=== PATIENT | male | born 1950 | race Caucasian/White ===

== ENCOUNTER 2025-04-09 21:47 | Inpatient (IN) | payer MEDICARE, SELFPAY ==
[2025-04-09 19:34] VITALS: BP 145/56; BMI 33.9
[2025-04-09 20:00] VITALS: BP 116/41
[2025-04-09 20:18] LABS: Hematocrit 19.2 % (39.0-52.0); Hemoglobin 6.3 g/dL (13.0-18.0); Mean Corp Hgb Conc. 32.8 g/dL (33.0-37.0); Mean Corpuscular Volume 90.1 fL (80.0-94.0); Nucleated Red Blood Cells % 0 % (-); Platelet Count 217 10^3/uL (130-400); Red Cell Dist. Width 15.7 % (11.5-14.5)
[2025-04-09 20:20] LABS: ALT (SGPT) 24 U/L (0-50); AST (SGOT) 20 U/L (17-59); Albumin 3.0 g/dl (3.5-5.0); Alkaline Phosphatase 194 U/L (38-126); Blood Urea Nitrogen 8 mg/dl (9-20); Calcium 7.9 mg/dl (8.4-10.2); Carbon Dioxide 26 mmol/L (22-30); Chloride 101 mmol/L (98-107); Estimated Creatinine Clearance 41 ml/min; Glucose 191 mg/dl (70-99); Potassium 3.9 mmol/L (3.5-5.1); Sodium 134 mmol/L (135-145); Total Protein 6.0 g/dl (6.3-8.2); eGFR 48.25
--- NOTE | 2025-04-09 20:48 | ED.GENMED ---
History of Present Illness
General
Chief Complaint: Abnormal Lab Value
Source: patient and ambulance crew
Exam Limitations: none
Time Seen by Provider: 04/09/25 20:25
History of Present Illness
History of Present Illness:
74-year-old male presents to the emergency department due to anemia. He was at dialysis, and had a low hemoglobin and was sent to the emergency department. He denies any blood in the stool. History of multiple myeloma.
Past History
Past History
ED Past Medical History: Arrthythmia (atrial flutter, atrial fibrillation), HTN, Hypercholesterolemia and Renal failure
ED Past Surgical History: Cardiac (Pacemaker)
Social History
Tobacco: Non-smoker
Alcohol: None
Drug: None
Living: halfway
Review of Systems
Review of Systems
Allergies reviewed?: Yes
All Other Systems: Not applicable
Constitutional: Reports no symptoms
EENT: Reports no symptoms
Respiratory: Reports no symptoms
Cardiac: Reports no symptoms
ABD/GI: Reports no symptoms
: Reports no symptoms
Musculoskeletal: Reports no symptoms
Skin: Reports no symptoms
Neurological: Reports no symptoms
Endocrine: Reports no symptoms
Hematologic/Lymphatic: Reports no symptoms
Psychiatric: Reports no symptoms
Phy Exam
Physical Exam
Physical Exam:
Physical Exam
General: Chronic ill appearance
Neck: supple. no meningeal signs. normal posterior pharynx
Heart: s1/s2 regular rate and rhythm, no murmur. equal radial
pulses.
HEENT: Pupils equal round reactive to light, EOMI
Lungs: no acute respiratory distress. clear bilaterally
Abdomen: normal bowel sounds. not tender. no CVAT
Neuro: alert and oriented. no focal neurological deficits cranial nerves II through XII intact
Skin: no rash
Psychiatric: well kept. interactive and cooperative
Extremities: no edema. no calf tenderness. negative homans. good distal pulses, bandage with healing wound on right foot
Course
Orders/Labs/Results
Orders:
Orders
04/09/25 19:58
Type And Crossmatch [Type+Screen] Urgent
Complete Blood Count/With Diff Urgent
Comprehensive Metabolic Panel Urgent
04/09/25 20:28
ABO2 Urgent
BBK Wristband Number:
Associate notified that ABO2 has been ordered: [id number]
Date: 04/09/25
Time: 20:19
[place] Layer ID: [id number]
04/09/25 20:47
* Blood Bank Products Urgent
's Orders: 1 unit prbcs
Blood Bank Products: *Packed RBC Leuko(PRBC's)
Quantity: 1
Transfuse Today: Yes
Reason: Anemia
Abnormal Lab Results
04/09/25
19:58
RBC 2.13 L 10^6/uL
(4.70-6.10)
Hgb 6.3 L* g/dL
(13.0-18.0)
Hct 19.2 L* %
(39.0-52.0)
MCHC 32.8 L g/dL
(33.0-37.0)
RDW 15.7 H %
(11.5-14.5)
Abs Immat Gran (auto) 0.2 H 10^3/uL
(0-0.05)
Absolute Neuts (auto) 6.8 H 10^3/uL
(1.4-6.5)
Absolute Lymphs (auto) 0.4 L 10^3/uL
(1.2-3.4)
Immature Gran % 3.0 H %
(0-0.5)
Neutrophils % 84.3 H %
(42.2-75.2)
Lymphocytes % 5.4 L %
(20.5-51.1)
Sodium 134 L mmol/L
(135-145)
BUN 8 L mg/dl
(9-20)
Creatinine 1.5 H mg/dL
(0.7-1.3)
Glucose 191 H mg/dl
(70-99)
Calcium 7.9 L mg/dl
(8.4-10.2)
Alkaline Phosphatase 194 H U/L
(38-126)
Total Protein 6.0 L g/dl
(6.3-8.2)
Albumin 3.0 L g/dl
(3.5-5.0)
04/09/25 19:58
04/09/25 19:58
Vital Signs
Initial and Last Documented VS:
Initial Vital Signs
Temp Pulse Resp BP Pulse Ox
98.1 F 60 20 145/56 98
04/09/25 19:34 04/09/25 19:34 04/09/25 19:34 04/09/25 19:34 04/09/25 19:34
Last Documented Vital Signs
Temp Pulse Resp BP Pulse Ox
98.1 F 60 19 116/41 98
04/09/25 19:34 04/09/25 20:00 04/09/25 20:00 04/09/25 20:00 04/09/25 20:08
MDM/Problems Addressed
Differential Diagnosis Includes:
GI bleed, anemia chronic disease
MDM/Problems Addressed:
74-year-old male with anemia, requiring transfusion. 1 unit packed red blood cells ordered. Will admit to hospitalist.
Chronic conditions affecting care: Arrhythmia and Kidney disease
Acute Exacerbation and/or Progression of Chronic Illness: Arrhythmia and Kidney disease
*Pulse Oximetry
SaO2: 98
Oxygen Mode of Delivery: Room air
Patient hypoxic: no
*Critical Care Note
Total Time (30-74mins, 75-104mins- exclusive of procedures): 32
comment:
Critical care statement: A total of 32 minutes of critical care time was provided for this patient. This includes management of unstable vital signs, evaluation of the patient at bedside, reviewing the patient's pertinent medical records, discussion
with consultants, review of old EKGs and review of pertinent medical records. This time with separate from time utilized to perform the aforementioned documented procedures
Data Reviewed
Further Testing Considered But Not Given:
ct a/p not indicated
Patient Management
Social determinants of health affecting care: Living situation and Strong social support
Discussion with other providers: Hospitalist
Escalation/DeEscalation of care consider admission/obs:
admit indicated
ED Attending Note
-
Portions of this chart may have been created with voice recognition software.� Occasional wrong word or��sound alike� substitutions may have occurred due to the inherent limitations of voice recognition software.
Discharge Plan
Departure
Patient Disposition: Admit
Date of Disposition: 04/09/25
Time of Disposition: 20:56
Admit to: Med/Surg
Presentation/result/management discussed w/ accepting MD/DO: Hospitalist
Patient with high blood pressure during this ER visit?: No
Condition: Fair
Discharge Problem:
Anemia
Referrals:
Quintin Cavazos, DO [Family Provider, Internal Medicine]
Interventions
Interventions:
*Risk Screen - Suicide Last Done: 04/09/25 19:34
*General Assessment Last Done: 04/09/25 19:34
*Neglect/Abuse Screening Last Done: 04/09/25 19:34
*ED- Fall Risk Assessment Last Done: 04/09/25 19:34
*ED COVID-19 Vaccine History Last Done: 04/09/25 19:34
Discharge Date and Time
Print Language: POLISH
--- NOTE | 2025-04-09 21:19 | W.PN.UPDATE ---
Update Note
Progress Note Update
I have independently examined the patient and agree with assessment and plan written on the same date. In addition:
74yo M with ESRD (started in January 2025 in [facility] where patient was for R joe DM wound SX) on HD sent from HD with anemia. Remote Hx of GIB in paperwork, that patient is not clear abliut
-PPI BID IV
-Anemia w/u, check FOBT, Nephro for Epo, s/p 1 unit PRBC in ED. Hematology opinion, follow CBC
-Elevated alk.phos w/u RUQ pain - follow LFT
We have spent at least 77min admitting the patient
--- NOTE | 2025-04-09 21:20 | HPS.HSE ---
Family Physician
-
Family Physician: Quintin Cavazos, DO
Chief Complaint
-
Anemia from dialysis
History of Present Illness
74-year-old male from [facility] where he has been since January 2025, was sent to ER due to low hemoglobin while at dialysis today of 6.3. He denies any black or bloody stools. The patient denies headache, blurred vision, dizziness,
chest pain, palpitations, cough, shortness of breath, abdominal pain, nausea, vomiting, diarrhea, urinary symptoms. He also has history of multiple myeloma in remission past 2 years, A-flutter, A-fib, pacemaker, HTN, HLD, ESRD on dialysis February 27
2024 post Charcot foot surgery February 04, 2025, DM 2/diet-controlled, GERD
Medical History
Past Medical History
Past Medical History: Reports Other
Additional Past Medical History:
multiple myeloma in remission past 2 years
A-flutter, A-fib,
pacemaker
HTN
HLD
ESRD on dialysis February 27, 2025 post Charcot foot surgery January 2025
post Charcot right foot surgery February 04, 2025
Past Surgical History: Reports Other
Additional Past Surgical History:
Charcot right foot surgery February 04, 2025
Permanent pacemaker
Social History
Tobacco: Non-smoker
Alcohol: Occasional
Drug: None
Personal: Single
Living: Alone
Employment: Retired
Family History
Family History: Other (Mother breast cancer age 32, brother colon cancer age 62 Father [place] age 70 Sister living arthritis knees)
Allergies / Home Medications
Allergies reflects when Allergies were last updated in [employer].
Home Medications with original date entered in [employer]
Allergy/Medication List:
Allergies
Allergy/AdvReac Type Severity Reaction Status Date / Time
cefadroxil Allergy Unknown Verified 04/09/25 20:03
Home Medications
Lactobacillus 1 cap PO DAILY 04/09/25
acetaminophen 325 mg tablet (Tylenol) 650 mg PO Q6HPRN PRN mild pain/temp>100.4F 04/09/25
amiodarone 200 mg tablet 200 mg PO BID 04/09/25
atorvastatin 20 mg tablet 20 mg PO QPM 04/09/25
bisacodyl 10 mg rectal suppository 10 mg IN DAILY PRN if sorbitol ineffective 04/09/25
calcium carbonate 1 tab PO BID 04/09/25
carvedilol 12.5 mg tablet 12.5 mg PO BID 04/09/25
dextromethorphan-guaifenesin 10 mg-100 mg/5 mL oral syrup 5 ml PO Q4HPRN PRN cough 04/09/25
digoxin 125 mcg (0.125 mg) tablet 125 mcg PO TUTHSA@1700 04/09/25
epoetin elie-epbx 10,000 unit/mL injection solution (Retacrit) 10,000 unit SC MOWEFR 04/09/25
febuxostat 40 mg tablet 40 mg PO DAILY 04/09/25
ferrous sulfate 325 mg (65 mg iron) tablet 325 mg PO BID 04/09/25
loperamide 2 mg capsule 2 mg PO Q6HPRN PRN diarrhea 04/09/25
multivitamin 1 tab PO DAILY 04/09/25
pantoprazole 40 mg tablet,delayed release 40 mg PO DAILY 04/09/25
potassium chloride 40 meq PO DAILY 04/09/25
sevelamer HCl 800 mg tablet 1,600 mg PO MEALS 04/09/25
sorbitol 70 % solution 30 ml PO DAILYPRN PRN constipation 04/09/25
vit C 250 mg-vit E 90 mg-zinc 40 mg-copper 1 nm-[id number] capsule (PreserVision AREDS-2) 1 cap PO BID 04/09/25
Review of Systems
-
History Source: Patient
A 12 point ROS was completed and negative except as noted: Yes
Constitutional: Denies Fever or Fatigue
EENT: Denies Sore Throat, Mouth Pain or Runny Nose
Respiratory: Denies Cough or Trouble Breathing
Cardiac: Denies Chest Pain, Palpitations or Syncope
Abdomen/GI: Denies Abdominal Pain, Nausea, Vomiting, Diarrhea, Constipated or Bloody Stools
: Denies Dysuria, Frequency, Flank Pain, Incontinence or Difficulty Voiding
Musculoskeletal: Reports Edema (Chronic trace bilateral lower legs with chronic pigment changes of PVD, right foot status post Charcot foot surgery with plantar wound); Denies Joint Pain
Skin: Denies Itching or Rash
Neurological: Denies Dizzy, Headache or Weakness
Endocrine: Reports No Symptoms
Hematologic/Lymphatic: Reports No Symptoms
Psych: Reports Calm
Physical Exam
Vital Signs
Vital Signs
Temp Pulse Resp BP Pulse Ox
98.1 F 60 19 116/41 98
04/09/25 19:34 04/09/25 20:00 04/09/25 20:00 04/09/25 20:00 04/09/25 20:52
Physical Exam
General: No Apparent Distress, Comfortable and Conversant; No Fever or Chills
HEENT: NormoCephalic, Anicteric, Moist mucous membranes, Atraumatic, PERRLA and No Ptosis
Respiratory: Clear; No Wheezes, Rales or Rhonchi
Cardiac: S1/S2 and Other (Paced); No Murmur, Rub or Gallop
Breast: Deferred by me
GI: Soft, Non Tender, Non Distended, Normal Bowel Sounds and No Hepatosplenomegaly
Rectal: Deferred by Provider
Genito-urinary: Deferred by me
Musculoskeletal: No Clubbing, No Cyanosis and Other (Chronic trace bilateral lower legs with chronic pigment changes of PVD, right foot status post Charcot foot surgery with plantar wound); No Edema, Left Upper Extremity or Edema, Right Upper
Extremity
Skin: Warm and Dry; No Rash
Neuro: AO x 3, No Motor Deficits, Nonfocal/grossly intact and No Sensory Deficits; No Slurred Speech, Facial Droop, Tremors or Sedated
Psych: Calm
Laboratory Results
-
04/09/25 19:58
04/09/25 19:58
Laboratory Results
Total Bilirubin 0.5 mg/dl (0.2-1.3) 04/09/25 19:58
AST 20 U/L (17-59) 04/09/25 19:58
ALT 24 U/L (0-50) 04/09/25 19:58
Alkaline Phosphatase 194 U/L (38-126) H 04/09/25 19:58
Impression/Plan
-
Impression/plan:
Admit to telemetry
#Acute anemia
#History of multiple myeloma/ESRD on dialysis
Hgb 6.3
Check iron panel, folate, B12, haptoglobin, LDH, reticulocyte
- Type and screen
- Transfuse 1 unit PRBC consent obtained in ER
- Follow CBC in a.m.
- Stool occult
- Consult GI
- Continue ferrous sulfate 325 mg twice daily
#Multiple myeloma in remission past 2 years
- Consult Hematology
#ESRD on dialysis February 27, 2025 post Charcot foot surgery February 04, 2025
Dialysis Monday completed 3-1/2 hours dialysis today 04/09/2025
Sees dialysis at [facility]
- Creat 1.5
Follow BMP-patient gets Retacrit 10,000 units Monday
- Continue sevelamer 1600 mg p.o. with meals
#Right foot post Charcot foot surgery February 04, 2025
Patient reports he has appointment with his qualification engineer on 04/15/2025 he cannot recall name
# A-flutter, A-fib
- Continue amiodarone 200 mg twice daily, digoxin 125 mcg p.o. Monday
#Permanent pacemaker
#HTN
BP 116/41
Continue digoxin 125 mcg p.o. Monday, carvedilol 12.5 mg p.o. twice daily
#GERD
Continue Protonix 40 mg daily
#HLD
Atorvastatin 20 mg every afternoon
DVT prophylaxis
SCDs
Full code
[2025-04-09 21:48] LABS: Reticulocyte Count 2.1 % (0.4-2.8)
[2025-04-09 21:49] LABS: Iron 35 ug/dl (49-181); LDH 215 U/L (120-246)
[2025-04-09 21:59] LABS: Total Iron Binding Capacity 163 ug/dl (261-462)
[2025-04-09] MEDS: PROTONIX IV 40 MG IV (22:05)
[2025-04-09] MEDS: NSS (PRESERVATIVE FREE) 10 ML IV (22:05)
[2025-04-09 22:12] VITALS: BP 132/55
[2025-04-09 22:30] VITALS: BP 135/58
[2025-04-09 23:11] VITALS: BP 156/64
[2025-04-09 23:12] VITALS: BMI 32.5
[2025-04-10] VITALS (9 sets, daily range): BP systolic 142–161; BP diastolic 56–70; BMI 32.8
[2025-04-10 00:10] LABS: Folate 7.4 ng/ml (2.76-20); Vitamin B12 994 pg/ml (239-931)
[2025-04-10 00:31] LABS: Ferritin 2000.0 ng/ml (17.9-464.0)
--- NOTE | 2025-04-10 06:30 | CON.ONC ---
Consultation
-
Date Consultation Requested: 04/09/25
Date Consultation Performed: 04/10/25
Impression
Impression
Acute on chronic anemia
Multiple myeloma last systemic therapy 06/23 with slow rise in M protein
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
History of Marshall's esophagus
ESRD
Charcot to foot with history of abscess
Atrial flutter/fib
Pacemaker
Hypertension
GERD
HDL
Plan
Plan
Baseline hemoglobin 9-10 g/dL
Patient previously receiving outpatient darbepoetin- last dose 11/26 for chronic renal disease consider will need to reinitiate darbepoetin posthospitalization
Last therapy for myeloma intervention Velcade 06/23 and Revlimid discontinued due to progressive renal insufficiency and cytopenias 03/24, bone marrow reduction of plasma cells to 1% at that time
Previous PET scan restaging for myeloma 11/26 negative for bone lesions
Iron studies appear to primarily reflect chronic disease
B12 folic acid in the normal range
Parenteral iron last administered 06/25 Monoferric parameters for outpatient resuscitation ferritin<500 and saturation less than 20%
Suspect the acute on chronic anemia secondary to AVM bleeding
GI consultation
Transfuse hemoglobin less than 7.0 g/dL
Will follow
Patient History
History of Present Illness
74-year-old male from [facility] where he has been since January 2025, was sent to ER due to low hemoglobin 6.3 g/dl while at dialysis 04/09. He has a H/O anemia and monoclonal gammopathy discovered during hospital admission on 11/02/21. The
patient had reported a history of chronic anemia with baseline hemoglobin in 9-10 g/dL range. He had taken oral iron twice daily for several years. Patient had prior history of peptic ulcer disease with GI bleed however, states this has resolved
with PPI. He underwent endoscopy and colonoscopy on 11/04/21 that showed duodenal erosions, gastritis, Marshall's esophagus, abnormal vascularity in the descending colon compatible AVMs with documented iron deficiency. Additional testing revealed a M
spike of 2.9 g/dL on SPEP and serum free light chains showed elevated kappa at 139.3, lambda 13.6 with K:L 10.24. Bone marrow showed 40% plasma cells with standard risk genetics. Calcium within normal limits. Pt also has a hx of CKD for several
years and has progressed to dialysis. Pt also has diabetes c/b neuropathy and Charcot foot with H/O I+D, debridement for abscess.. He was discharged in January from [facility] with recommendation for close CBC monitoring and hematology follow up. He has
been getting routine labs with CBC and iron studies which have shown steady drop in hgb. labs from 12/02/21 showed a hgb of 6.3 g/dL with MCV 93.1%, reticulocyte count 3.5%, iron saturation 15%. He was contacted by his PCP. Pt continues to be overall
asymptomatic from his anemia without SOB, fatigue, CP, lightheadedness. Therefore, held off on blood transfusion, instructed to hold Eliquis, and planned to arrange for IV iron and moved up hematology appt. Pt continues to deny melena, BRBPR,
hematuria.
Past-Medical/Surgical History
Past Medical History
Multiple myeloma IgG kappa
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
A-flutter, A-fib,
Pacemaker
HTN
HLD
ESRD on dialysis February 27, 2025 post Charcot foot surgery January 2025
Charcot right foot surgery February 04, 2025
Past Surgical History
Charcot right foot surgery February 04, 2025
Permanent pacemaker
Social History
Tobacco: Non-smoker
Alcohol: Occasional
Drug: None
Personal: Single
Living: Alone
Employment: Retired
Family History
Mother breast cancer age 32, brother colon cancer age 62 Father [place] age 70 Sister living arthritis knees
Patient Medication
�Medication �Instructions �Recorded �Confirmed �Last Taken �Type
Lactobacillus 1 cap PO DAILY 04/09/25 04/09/25 04/09/25 History
acetaminophen 325 mg tablet 650 mg PO Q6HPRN PRN mild 04/09/25 04/09/25 04/05/25 History
(Tylenol) pain/temp>100.4F
amiodarone 200 mg tablet 200 mg PO BID 04/09/25 04/09/25 04/09/25 History
atorvastatin 20 mg tablet 20 mg PO QPM 04/09/25 04/09/25 04/09/25 History
bisacodyl 10 mg rectal suppository 10 mg NV DAILY PRN if sorbitol 04/09/25 04/09/25 Unknown History
ineffective
calcium carbonate 1 tab PO BID 04/09/25 04/09/25 04/09/25 History
carvedilol 12.5 mg tablet 12.5 mg PO BID 04/09/25 04/09/25 04/09/25 History
dextromethorphan-guaifenesin 10 5 ml PO Q4HPRN PRN cough 04/09/25 04/09/25 Unknown History
mg-100 mg/5 mL oral syrup
digoxin 125 mcg (0.125 mg) tablet 125 mcg PO TUTHSA@1700 04/09/25 04/09/25 04/08/25 History
epoetin elie-epbx 10,000 unit/mL 10,000 unit SC MOWEFR 04/09/25 04/09/25 04/07/25 History
injection solution (Retacrit)
febuxostat 40 mg tablet 40 mg PO DAILY 04/09/25 04/09/25 04/09/25 History
ferrous sulfate 325 mg (65 mg 325 mg PO BID 04/09/25 04/09/25 04/09/25 History
iron) tablet
loperamide 2 mg capsule 2 mg PO Q6HPRN PRN diarrhea 04/09/25 04/09/25 04/05/25 History
multivitamin 1 tab PO DAILY 04/09/25 04/09/25 04/09/25 History
pantoprazole 40 mg tablet,delayed 40 mg PO DAILY 04/09/25 04/09/25 04/09/25 History
release
potassium chloride 40 meq PO DAILY 04/09/25 04/09/25 04/09/25 History
sevelamer HCl 800 mg tablet 1,600 mg PO MEALS 04/09/25 04/09/25 04/09/25 History
sorbitol 70 % solution 30 ml PO DAILYPRN PRN constipation 04/09/25 04/09/25 Unknown History
vit C 250 mg-vit E 90 mg-zinc 40 1 cap PO BID 04/09/25 04/09/25 04/09/25 History
mg-copper 1 [id number]-patasq
capsule (PreserVision AREDS-2)
Active Medications
Generic Name Dose Route Start Last Admin
Trade Name Freq PRN Reason Stop Dose Admin
Acetaminophen 650 mg 04/09/25 23:05
Acetaminophen 325 Mg Tablet PO 05/07/25 23:04
Q4HPRN PRN
mild pain/TUTTLE/temp> 100.4F
Amiodarone HCl 200 mg 04/10/25 08:00
Amiodarone 200 Mg Tablet PO 05/08/25 07:59
BID AIDA
Atorvastatin Calcium 20 mg 04/10/25 18:00
Atorvastatin (Lipitor) 20 Mg Tablet PO 05/08/25 17:59
QPM AIDA
Bisacodyl 10 mg 04/09/25 23:05
Bisacodyl 10 Mg Rectal Suppository RECTAL 05/07/25 23:04
DAILY PRN
if sorbitol ineffective
Calcium Carbonate 200 mg 04/10/25 08:00
Calcium Antacid 200 Mg (Calcium Carbonate 500 Mg) Chew Tablet PO 05/08/25 07:59
BID AIDA
Carvedilol 12.5 mg 04/10/25 08:00
Carvedilol 12.5 Mg Tablet PO 05/08/25 07:59
BID AIDA
Digoxin 125 mcg 04/10/25 17:00
Digoxin 125 Mcg Tablet PO 05/08/25 16:59
TUTHSA@1700 AIDA
Febuxostat 40 mg 04/10/25 08:00
Febuxostat (Non-Form) 40 Mg Tablet PO 05/08/25 07:59
DAILY AIDA
Ferrous Sulfate 325 mg 04/10/25 08:00
Ferrous Sulfate 325 Mg Tablet PO 05/08/25 07:59
BID AIDA
Guaifenesin/Dextromethorphan 5 ml 04/09/25 23:05
Guaifenesin/Dextromethorphan 200 Mg/10 Ml Cup PO 05/07/25 23:04
Q4HPRN PRN
cough
Loperamide HCl 2 mg 04/09/25 23:05
Loperamide 2 Mg Capsule PO 05/07/25 23:04
Q6HPRN PRN
diarrhea
Multivitamins Therapeutic 1 tablet 04/10/25 08:00
Multivitamin Tablet PO 05/08/25 07:59
DAILY AIDA
Pantoprazole Sodium 40 mg 04/09/25 22:00 04/09/25 22:05
Pantoprazole Sodium 40 Mg/10 Ml Vial IV 05/07/25 21:59 40 mg
Q12H AIDA Administration
Sevelamer Carbonate 1,600 mg 04/10/25 08:00
Sevelamer Carbonate (Renvela) 800 Mg Tablet PO 05/08/25 07:59
MEALS AIDA
Sodium Chloride 10 ml 04/09/25 22:00 04/09/25 22:05
Sodium Chloride 0.9% (Preservative Free) 10 Ml Vial IV 05/07/25 21:59 10 ml
BID@1000,2200 AIDA Administration
Sodium Chloride 0 flush 04/09/25 22:00
Sodium Chloride 0.9% (Flush) Syringe IV 05/07/25 21:59
PER PROTOCOL AIDA
Sorbitol 30 ml 04/09/25 23:05
Sorbitol 70% (Oral Solution) 30 Ml Cup PO 05/07/25 23:04
DAILYPRN PRN
constipation
Vitamin C/Vitamin E 1 cap 04/10/25 08:00
Vit C/Vit E/Lutein/Min/[place]-3 (Ocuvite) Capsule PO 05/08/25 07:59
BID AIDA
Review of Systems
-
12 point review of systems fails to elicit additional complaints other than those reviewed in the HPI.
Physical Exam
-
Physical Exam
General: No Apparent Distress, Comfortable and Conversant; No Fever or Chills
HEENT: NormoCephalic, Anicteric, Moist mucous membranes, Atraumatic
Respiratory: Clear; No Wheezes, Rales or Rhonchi
Cardiac: S1/S2 and Other (Paced); No Murmur, Rub or Gallop
GI: Soft, Non Tender, Non Distended, Normal Bowel Sounds and No Hepatosplenomegaly
Musculoskeletal: No Clubbing, No Cyanosis and trace edema bilaterally
Skin: Warm and Dry; No Rash extremities with stasis changes
Neuro: AO x 3, No Motor Deficits, Nonfocal/grossly intact and No Sensory Deficits
Psych: Calm
Labs
Lab Results
WBC 8.1 10^3/uL (4.8-10.8) 04/09/25 19:58
RBC 2.13 10^6/uL (4.70-6.10) L 04/09/25 19:58
Hgb 6.3 g/dL (13.0-18.0) L* 04/09/25 19:58
Hct 19.2 % (39.0-52.0) L* 04/09/25 19:58
MCV 90.1 fL (80.0-94.0) 04/09/25 19:58
MCH 29.6 pg (27.0-31.0) 04/09/25 19:58
MCHC 32.8 g/dL (33.0-37.0) L 04/09/25 19:58
RDW 15.7 % (11.5-14.5) H 04/09/25 19:58
Plt Count 217 10^3/uL (130-400) 04/09/25 19:58
MPV 9.3 fL (7.4-10.4) 04/09/25 19:58
Abs Immat Gran (auto) 0.2 10^3/uL (0-0.05) H 04/09/25 19:58
Absolute Neuts (auto) 6.8 10^3/uL (1.4-6.5) H 04/09/25 19:58
Absolute Lymphs (auto) 0.4 10^3/uL (1.2-3.4) L 04/09/25 19:58
Absolute Monos (auto) 0.5 10^3/uL (0.1-0.6) 04/09/25 19:58
Absolute Eos (auto) 0.0 10^3/uL (0-0.7) 04/09/25 19:58
Absolute Basos (auto) 0.0 10^3/uL (0-0.2) 04/09/25 19:58
Immature Gran % 3.0 % (0-0.5) H 04/09/25 19:58
Neutrophils % 84.3 % (42.2-75.2) H 04/09/25 19:58
Lymphocytes % 5.4 % (20.5-51.1) L 04/09/25 19:58
Monocytes % 6.6 % (1.7-9.3) 04/09/25 19:58
Eosinophils % 0.5 % (0-6) 04/09/25 19:58
Basophils % 0.2 % (0-2) 04/09/25 19:58
Creatinine 1.5 mg/dL (0.7-1.3) H 04/09/25 19:58
Vital Signs
Vital Signs
Temp Pulse Resp BP Pulse Ox
99.1 F 61 18 155/63 98
04/10/25 00:03 04/10/25 00:03 04/10/25 00:03 04/10/25 00:03 04/09/25 23:11
[2025-04-10 08:05] LABS: Hematocrit 19.8 % (39.0-52.0); Hemoglobin 6.5 g/dL (13.0-18.0); Mean Corp Hgb Conc. 32.8 g/dL (33.0-37.0); Mean Corpuscular Volume 88.8 fL (80.0-94.0); Nucleated Red Blood Cells % 0 % (-); Platelet Count 186 10^3/uL (130-400); Red Cell Dist. Width 15.5 % (11.5-14.5)
[2025-04-10 08:13] LABS: Blood Urea Nitrogen 15 mg/dl (9-20); Calcium 7.5 mg/dl (8.4-10.2); Carbon Dioxide 27 mmol/L (22-30); Chloride 105 mmol/L (98-107); Estimated Creatinine Clearance 31 ml/min; Glucose 115 mg/dl (70-99); Potassium 3.8 mmol/L (3.5-5.1); Sodium 133 mmol/L (135-145); eGFR 34.16
[2025-04-10] MEDS: ULORIC 40 MG PO (09:39)
[2025-04-10] MEDS: PACERONE 200 MG PO ×2 (09:40→20:25)
[2025-04-10] MEDS: FEOSOL 325 MG PO ×2 (09:40→20:24)
[2025-04-10] MEDS: OCUVITE SOFTGEL 1 CAP PO ×2 (09:40→20:24)
[2025-04-10] MEDS: TUMS CHEWABLE TABLET 200 MG PO ×2 (09:40→20:24)
[2025-04-10] MEDS: THERAGRAN 1 TABLET PO (09:40)
[2025-04-10] MEDS: COREG 12.5 MG PO ×2 (09:40→20:24)
[2025-04-10] MEDS: RENVELA 1600 MG PO ×3 (09:40→19:26)
[2025-04-10] MEDS: PROTONIX IV 40 MG IV ×2 (09:42→22:35)
[2025-04-10] MEDS: NSS (PRESERVATIVE FREE) 10 ML IV ×2 (09:42→22:36)
--- NOTE | 2025-04-10 11:00 | W.PN.HOSP.TC ---
Today's Communication/Plan
-
Transfuse
Monitor hemoglobin
heme check stools
Obtain previous records
GI consult
Assessment / Plan
Assessment / Plan
Gen-AAOx3, NAD
HEENT-NC, AT, anicteric, clear oral mm
Neck-supple
CV-reg, no M, +S1/S2
Lungs-clear B/L
Abd-soft, NT, ND
Ext-no edema
Musculoskeletal-no cyanosis, clubbing
Skin-warm and dry
Neuro-grossly non-focal
Psych-calm, cooperative
Acute on chronic anemia -etiology of acute anemia unclear. No obvious evidence of bleeding. Patient denies melena or hematochezia, denies nausea or vomiting. Reportedly has a history of GI bleed in the past. Patient states that he had upper and
lower endoscopy as well as capsule endoscopy in the past couple months and [facility] that was negative. Try to obtain records.
Differential diagnosis for anemia includes ESRD, GI bleed, etc.
Not iron deficient based on labs. B12 and folic acid normal.
Hemoglobin 6.5 today despite 1 unit transfusion yesterday. Will transfuse second unit of blood today. Heme check stools.
GI consulted.
Hold Eliquis in the setting of acute on chronic anemia and potential GI bleed.
ESRD -on dialysis Monday, Monday, Monday. Consult nephrology.
Atrial flutter/atrial fibrillation -unknown type. His sports development officer is Dr. Hansel Majano. Has been on chronic Eliquis 2.5 mg twice daily, now on hold for acute on chronic anemia. Continue amiodarone.
Hyperlipidemia -atorvastatin.
History of multiple myeloma -appreciate oncology input.
Right sided Charcot foot -s/p surgical correction 02/04/2025 and [facility]. Heel touch weightbearing allowed. Follow-up with podiatry.
Permanent pacemaker
Essential hypertension -stable.
GERD
Hyponatremia -133.
Obesity due to excess calories
Full code
PT/OT
Dispo -pending PT/OT input and medical stability. Patient hoping not to go back to [facility].
Anticipated Discharge: > 48 hours
Subjective/Interval History
-
Date of Service: April 10, 2025
Patient seen and examined. No complaints.
Objective Data
-
Labs:
Laboratory Results
04/10/25
07:18
WBC 7.7
Hgb 6.5 L*
Hct 19.8 L*
Plt Count 186
Sodium 133 L
Potassium 3.8
Chloride 105
Carbon Dioxide 27
BUN 15
Creatinine 2.0 H
Glucose 115 H
Calcium 7.5 L
Vital Signs:
Vital Signs
Temp Pulse Resp BP Pulse Ox
98 F 61 20 149/62 97
04/10/25 07:00 04/10/25 09:40 04/10/25 07:00 04/10/25 09:40 04/10/25 07:00
I&O
04/09/25 04/10/25 04/11/25
06:59 06:59 06:59
Intake Total 490 / 490
Balance 490 / 490
Review of Systems
-
History Source: Patient
All other systems: Reviewed and negative
--- NOTE | 2025-04-10 11:15 | CM ---
Addendum entered by Keyon Kuhn 04/10/25 15:25:
CM spoke to [facility] admissions department architectural representative Farrukhdalialj and she confirmed they do not have this patient on their record.
CM will make a referral to [facility] when hep panel result is available.
Original Note:
CM following re: discharge planning.
Reviewed pt's chart, met with pt.
Pt is a 74 year old male, admitted with primary dx of Acute on chronic anemia.
Pt reports he lives alone in [address], no steps, there is a ramp. Pt reports he does not have family around, has no children, has a sister and she [place] out of state. Pt reports she has been at [facility] since february 27 of this year, admitted there
from [facility] and pt stated he will not return back to [facility] and pt made a strong request to return back home with VN services and pt stated he needs outpatient HD treatment clinic set up. Pt reports his HD treatment is new,
started at [facility], outpatient HD treatment clinic was not set up and per pt his tag and label cutter was working on setting up outpatient HD treatment at [facility]. Pt stated his tag and label cutter is Maricarmen Tobar and she goes to [facility]
[place]. Pt stated it does not make difference for him: [facility] or [facility] on [facility] [place], he just received a phone call from [facility] a month ago and pt stated he does not know who notified them. CM will
comfirm with [facility].
A list of VN vendors provided, pt preferred [facility]. A referral to [facility] made.
CM discussed pt's case with tag and label cutter dr. Monroy, hepatitis panel order requested. CM will make a referral to [facility] to set up outpatient HD treatment at requested outpatient HD treatment at [facility] oe [facility] on [place].
PCP: Pawel Quarles
Pharmacy: [facility]
D/C plan: home with [facility] and outpatient HD treatment at [facility] or [facility].
CM will follow with discharge plan updates as hospitalization progresses
--- NOTE | 2025-04-10 11:26 | WOUNDNOTE ---
L DORSAL 2ND TOE
--- NOTE | 2025-04-10 11:30 | WOUNDNOTE ---
WON RN note: Patient admitted with anemia.
See H&P for complete history.Living at [facility], dialysis MWF.
PMH: ED Past Medical History: Arrthythmia (atrial flutter, atrial fibrillation), HTN, Hypercholesterolemia and Renal failure
ED Past Surgical History: Cardiac (Pacemaker), R Charcot foot surgery 01/2025
Wound Location and type/assessment: Patient admitted with: R plantar foot post surgical wound. Infected bone removed this past January, states patient. Has a follow up apt next patient reports with a 'Dr. Segovia at [facility]
Patient could not recall name of Training Representative but said wound care has been a collagen dressing. Today wound mostly pale pink, small amt of yellow adherent slough, no odor or warmth. + palpable pedal pulses both feet. R Achilles with dry scab, patient
reports he got that from the Charcot brace he wears when ambulating. Otherwise he wears a sock or slipper and pivots on heel. L 2nd dorsal toe with intact dry scabbed abrasion. Patient able to turn self to sides, sacrum is intact. Has some chronic
dark discoloration on buttocks, suspect from prolonged sitting.
Appetite: Good.
Pressure redistribution devices in place: On Accumax. Pillow under calves.
Plan: R plantar will order Santyl to help clean up wound bed before resuming collagen dressing at [place]. Skin prep applied to R Achilles and L 2nd toe scabs. Protective foams applied to intact heels. Will recommend foam to R Achilles when wearing
brace. Will confirm orders with hospitalist and update nurse.
Updated care plan and will follow as needed.
Note to case management of equipment requested for discharge: None
Recommend follow up with Training Representative as scheduled.
--- NOTE | 2025-04-10 11:45 | W.CON.NEPH ---
Consultation
-
Date/Time Consultation Requested: 04/10/2025 11 AM
Date/Time Consultation Performed: 04/10/2025 11 AM
Requesting Provider: Dr. Mello
Performing Provider: Dr. Monroy
Reason for Consultation: ESRD
Medical History
-
Chief Complaint: ESRD
History of Present Illness:
74-year-old gentleman who has prior history of multiple myeloma who says he is currently in remission. He had some chronic kidney disease that was unable to quantify how well it was in the past. He does state that at 1 point his facility security officer
recommended that he see a pattern worker. He had only started seeing a pattern worker earlier this year by his report. He does not know his overall function. He does have Charcot foot and was at [facility] for surgery in early January. He then
went to rehab but developed acute kidney injury and was readmitted and started on dialysis. He then went back to rehab at [facility]. He does have diabetes on no medications which appears to be stable as well as atrial fibrillation on amiodarone
therapy which has been controlled. He was sent to the emergency room from [facility] because blood work had shown a hemoglobin in the 6s.
Past Medical History
Multiple myeloma IgG kappa
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
A-flutter, A-fib,
Pacemaker
HTN
HLD
ESRD on dialysis February 27, 2025 post Charcot foot surgery January 2025
Charcot right foot surgery February 04, 2025
Charcot right foot surgery February 04, 2025
Permanent pacemaker
Social History
Tobacco: Non-Smoker
Alcohol: Occasional
Family History
Family History: Not Pertinent
Allergies / Home Medications
Allergy/AdvReac Type Severity Reaction Status Date / Time
cefadroxil Allergy Unknown Verified 04/09/25 20:03
�Medication �Instructions �Recorded �Confirmed �Type
Lactobacillus 1 cap PO DAILY 04/09/25 04/09/25 History
acetaminophen 325 mg tablet 650 mg PO Q6HPRN PRN mild 04/09/25 04/09/25 History
(Tylenol) pain/temp>100.4F
amiodarone 200 mg tablet 200 mg PO BID 04/09/25 04/09/25 History
atorvastatin 20 mg tablet 20 mg PO QPM 04/09/25 04/09/25 History
bisacodyl 10 mg rectal suppository 10 mg NM DAILY PRN if sorbitol 04/09/25 04/09/25 History
ineffective
calcium carbonate 1 tab PO BID 04/09/25 04/09/25 History
carvedilol 12.5 mg tablet 12.5 mg PO BID 04/09/25 04/09/25 History
dextromethorphan-guaifenesin 10 5 ml PO Q4HPRN PRN cough 04/09/25 04/09/25 History
mg-100 mg/5 mL oral syrup
digoxin 125 mcg (0.125 mg) tablet 125 mcg PO TUTHSA@1700 04/09/25 04/09/25 History
epoetin elie-epbx 10,000 unit/mL 10,000 unit SC MOWEFR 04/09/25 04/09/25 History
injection solution (Retacrit)
febuxostat 40 mg tablet 40 mg PO DAILY 04/09/25 04/09/25 History
ferrous sulfate 325 mg (65 mg 325 mg PO BID 04/09/25 04/09/25 History
iron) tablet
loperamide 2 mg capsule 2 mg PO Q6HPRN PRN diarrhea 04/09/25 04/09/25 History
multivitamin 1 tab PO DAILY 04/09/25 04/09/25 History
pantoprazole 40 mg tablet,delayed 40 mg PO DAILY 04/09/25 04/09/25 History
release
potassium chloride 40 meq PO DAILY 04/09/25 04/09/25 History
sevelamer HCl 800 mg tablet 1,600 mg PO MEALS 04/09/25 04/09/25 History
sorbitol 70 % solution 30 ml PO DAILYPRN PRN constipation 04/09/25 04/09/25 History
vit C 250 mg-vit E 90 mg-zinc 40 1 cap PO BID 04/09/25 04/09/25 History
mg-copper 1 [id number]
capsule (PreserVision AREDS-2)
Review of Systems
-
No chest pain no shortness of breath, mild fatigue
All other systems: Negative unless noted
Physical Exam
Vital Signs
Vital Signs
Temp Pulse Resp BP Pulse Ox
98 F 61 20 149/62 97
04/10/25 07:00 04/10/25 09:40 04/10/25 07:00 04/10/25 09:40 04/10/25 07:00
Lab Results
WBC 7.7 10^3/uL (4.8-10.8) 04/10/25 07:18
RBC 2.23 10^6/uL (4.70-6.10) L 04/10/25 07:18
Hgb 6.5 g/dL (13.0-18.0) L* 04/10/25 07:18
Hct 19.8 % (39.0-52.0) L* 04/10/25 07:18
Plt Count 186 10^3/uL (130-400) 04/10/25 07:18
Sodium 133 mmol/L (135-145) L 04/10/25 07:18
Potassium 3.8 mmol/L (3.5-5.1) 04/10/25 07:18
Chloride 105 mmol/L (98-107) 04/10/25 07:18
Carbon Dioxide 27 mmol/L (22-30) 04/10/25 07:18
BUN 15 mg/dl (9-20) 04/10/25 07:18
Creatinine 2.0 mg/dL (0.7-1.3) H 04/10/25 07:18
eGFR 34.16 04/10/25 07:18
Glucose 115 mg/dl (70-99) H 04/10/25 07:18
Calcium 7.5 mg/dl (8.4-10.2) L 04/10/25 07:18
Albumin 3.0 g/dl (3.5-5.0) L 04/09/25 19:58
Physical Exam
Patient is awake alert oriented and in no distress. Mood and affect were pleasant, insight and judgment were good. Pupils are equal round and reactive to light, extraocular movements are intact, sclera were anicteric. Hearing was normal, ears and
nose are intact. Oropharynx was clear. Neck was supple with trachea midline and no thyromegaly. Heart was regular rate and rhythm without rubs. Lower extremities without edema. Lungs were clear to auscultation bilaterally and with normal
excursion. Abdomen was soft, nontender, with normal active bowel sounds, and no hepatosplenomegaly. Skin was without rash and with normal turgor. Dialysis catheter in the left upper chest wall
Data Reviewed
-
Labs: Labs Reviewed by me
Old Records: Requested
Assessment/Plan
-
Impression
Acute on chronic anemia
Multiple myeloma last systemic therapy 06/23
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
History of Marshall's esophagus
ESRD
Charcot to foot with history of abscess, surgery
Atrial flutter/fib
Pacemaker
Hypertension
GERD
Plan
Next dialysis tomorrow
[facility] on dialysis
Transfuse as needed
Will try and obtain records from [facility]
He has run out of benefits and will not be returning to [facility]
Will need outpatient dialysis unit arrangements closer to home, likely in [place]
Check hepatitis serologies, chest x-ray
[2025-04-10] MEDS: IMODIUM 2 MG PO (12:02)
--- NOTE | 2025-04-10 14:10 | CON.GI ---
Addendum entered and electronically signed by Hafsa Mendez DO 04/10/25 15:50:
The patient was seen and examined by me independently in collaboration with the nurse practitioner.
Past medical history/social history/medications/allergies/family history reviewed.
Lab data and imaging data reviewed.
Philip Elizalde is a 74 y.o. male with pmhx ESRD on HD, history of multiple myeloma (in remission), afib on eliquis (last dose / AM?), pacemaker, admitted from HD with a hemoglobin of 6.3. He reports history of anemia, in setting of chemotherapy for
tx of his MM, but last transfusion he needed was a few years ago. That said, he was hospitalized at [facility] in January, does endorse being anemic then but now does not recall if he needed a transfusion. He states he had a full endoscopic evaluation,
including EGD, Colonoscopy and VCE, with no identifiable source of bleeding found. He does not recall what recommendations were given to him regarding next steps in the anemia workup. He denies any melena, hematochezia or unintentional weight loss.
He is new to HD-- he had a charcot foot surgery on 02/04, reports then went into renal failure, requiring initiation of HD.
He was transfused with 1 unit of PRBC with repeat Hgb of 6.5
A/P: Normocytic Anemia in setting of new diagnosis of ESRD on HD, Afib on Eliquis and history of multiple myleoma in remission
-->Records obtained from [facility] show EGD with new dx of short-segment BE w/o dysplasia, erosive gastritis, no identifiable source of GI bleed to explain anemia, per report, colonoscopy had just been completed at [facility], recommending VCE as outpatient
which was reportedly completed
-->Colonoscopy @ [facility] (06/2024): Diverticulosis, hemorrhoids
(need to obtain official report)
-appreciate hematology input
-iron panel not consistent with Iron def
-he received 1 unit of PRBC with inadequate response, 6.3 --> 6.5
-Recommend giving another unit of blood now
-continue PPI
-okay for diet
-IV iron
-no evidence of overt GI bleeding, suspect multifactorial, lack of outpatient IV iron and renal disease- recommend workup for other causes of anemia. Given recent full GI workup, no plans for inpatient evaluation at this time. If s/s of GI bleeding,
please call GI back and can discuss repeating EGD
GI will sign off, please call with questions
Original Note:
Consultation
-
Date/Time Consultation Requested: 04/10/252199
Date/Time Consultation Performed: 04/10/25 1410
Requesting Provider: ADRIAN Banks
Performing Provider: ADRIAN Joshi, Jacqueline Mendez DO
Reason for Consultation: anemia
Medical History
Chief Complaint / HPI
Chief Complaint: abnormal labs
History of Present Illness:
Pt is a 74yo with hx afib(not on anticoagulation), multiple myeloma, pacer, HTN, hyperlipidemia, ESRD on HD (new since foot surgery) with recent charcot foot surgery in January 2025. He presents from [facility] with drop in hbg to 6.3. No baseline
labs in system but per [facility] baseline 9-10. According to scanned in chart pt with recent EGD 02/[address] Leyva at [facility] with normal duodenum, non bleeding erosive gastritis , 3 cm irreg Z line with concern for guzmán's and bx taken.
He also had colonoscopy in June 2024 with diverticulosis and hemorrhoids. He also report recent negative capsule endoscopy.
In review with patient hx admits to hx multiple myeloma in 2021 with transfusion required at that time. He admits to hematology follow with periodic iron and Derbepoetin but last dose per heme 11/2024. Since that time he has had admission to
[facility] with start of HD then [facility] and no further injections that he was aware of. From a GI standpoint he admits to occasional diarrhea with greenish stool today but denies odynophagia, dysphagia, GERD, nausea, vomiting, abdominal pain, or
constipation, red or black in stools. No NSAID use. + brother with colon CA.
Past Medical History
Past Medical History: Arrhythmias (afib/aflutter ), Cancer (multiple myeloma in remission), HTN, Hypercholesterolemia and Renal Failure (ESRD on HD)
Past Surgical History: Cardiac (pacer) and Orthopedic (charcot foot)
Social History
Alcohol: Occasional
Drug: None
Living: Jail (alone prior )
Employment: Retired
Family History
Family History: Other (brother with colon CA)
Allergies / Home Medications
Allergy/AdvReac Type Severity Reaction Status Date / Time
cefadroxil Allergy Unknown Verified 04/09/25 20:03
�Medication �Instructions �Recorded
Lactobacillus 1 cap PO DAILY 04/09/25
acetaminophen 325 mg tablet 650 mg PO Q6HPRN PRN mild 04/09/25
(Tylenol) pain/temp>100.4F
amiodarone 200 mg tablet 200 mg PO BID 04/09/25
atorvastatin 20 mg tablet 20 mg PO QPM 04/09/25
bisacodyl 10 mg rectal suppository 10 mg [place] DAILY PRN if sorbitol 04/09/25
ineffective
calcium carbonate 1 tab PO BID 04/09/25
carvedilol 12.5 mg tablet 12.5 mg PO BID 04/09/25
dextromethorphan-guaifenesin 10 5 ml PO Q4HPRN PRN cough 04/09/25
mg-100 mg/5 mL oral syrup
digoxin 125 mcg (0.125 mg) tablet 125 mcg PO TUTHSA@1700 04/09/25
epoetin elie-epbx 10,000 unit/mL 10,000 unit SC MOWEFR 04/09/25
injection solution (Retacrit)
febuxostat 40 mg tablet 40 mg PO DAILY 04/09/25
ferrous sulfate 325 mg (65 mg 325 mg PO BID 04/09/25
iron) tablet
loperamide 2 mg capsule 2 mg PO Q6HPRN PRN diarrhea 04/09/25
multivitamin 1 tab PO DAILY 04/09/25
pantoprazole 40 mg tablet,delayed 40 mg PO DAILY 04/09/25
release
potassium chloride 40 meq PO DAILY 04/09/25
sevelamer HCl 800 mg tablet 1,600 mg PO MEALS 04/09/25
sorbitol 70 % solution 30 ml PO DAILYPRN PRN constipation 04/09/25
vit C 250 mg-vit E 90 mg-zinc 40 1 cap PO BID 04/09/25
mg-copper 1 [id number]
capsule (PreserVision AREDS-2)
Review of Systems
-
History Source: Patient
Constitutional: Reports Weight Loss (with recent admission)
EENT: Reports No Symptoms
Respiratory: Reports No Symptoms
Cardiac: Reports No Symptoms
Abdomen/GI: Reports Diarrhea (occasional loose stool)
: Reports Other (daily urination in AM with HD)
Musculoskeletal: Reports No Symptoms
Skin: Reports No Symptoms
Neurological: Reports Weakness
Endocrine: Reports No Symptoms
Hematologic/Lymphatic: Reports No Symptoms
Vital Signs
Temp Pulse Resp BP Pulse Ox
97.5 F 61 20 161/65 97
04/10/25 14:04 04/10/25 14:04 04/10/25 14:04 04/10/25 14:04 04/10/25 14:04
Physical Exam
Exam
General: Other (pale)
HEENT: Normocephalic and Anicteric
Respiratory: Clear
Cardiac: Regular Rhythm
GI: Soft, Non Tender and Non Distended
Musculoskeletal: No Clubbing and No Cyanosis
Skin: Warm and Dry
Neuro: Awake, Alert and AO x 3
Psych: Calm
Results
WBC 7.7 10^3/uL (4.8-10.8) 04/10/25 07:18
Hgb 6.5 g/dL (13.0-18.0) L* 04/10/25 07:18
Hct 19.8 % (39.0-52.0) L* 04/10/25 07:18
MCV 88.8 fL (80.0-94.0) 04/10/25 07:18
Plt Count 186 10^3/uL (130-400) 04/10/25 07:18
Absolute Neuts (auto) 6.2 10^3/uL (1.4-6.5) 04/10/25 07:18
Sodium 133 mmol/L (135-145) L 04/10/25 07:18
Potassium 3.8 mmol/L (3.5-5.1) 04/10/25 07:18
Chloride 105 mmol/L (98-107) 04/10/25 07:18
Carbon Dioxide 27 mmol/L (22-30) 04/10/25 07:18
BUN 15 mg/dl (9-20) 04/10/25 07:18
Creatinine 2.0 mg/dL (0.7-1.3) H 04/10/25 07:18
Calcium 7.5 mg/dl (8.4-10.2) L 04/10/25 07:18
Total Bilirubin 0.5 mg/dl (0.2-1.3) 04/09/25 19:58
AST 20 U/L (17-59) 04/09/25 19:58
ALT 24 U/L (0-50) 04/09/25 19:58
Alkaline Phosphatase 194 U/L (38-126) H 04/09/25 19:58
Diagnostic Image Results:
Prior GI Procedures:
EGD: EGD 02/[address] Leyva at [facility] with normal duodenum, non bleeding erosive gastritis , 3 cm irreg Z line with concern for guzmán's and bx taken. (bx not reviewed)
Colonoscopy: June 2024 with diverticulosis and hemorrhoids. He also report recent negative capsule endoscopy.
recent negative capsule endoscopy.
Assessment / Plan
-
Pt is a 74yo with hx afib(not on anticoagulation), multiple myeloma, pacer, HTN, hyperlipidemia, ESRD on HD(new since foot surgery) with recent charcot foot surgery in January 2025. He presents from [facility] with drop in hbg to 6.3. No baseline labs
in system but per heme baseline 9-10. According to scanned in chart pt with recent EGD 02/[address] Leyva at [facility] with normal duodenum, non bleeding erosive gastritis , 3 cm irreg Z line with concern for guzmán's and bx taken. He
also had colonoscopy in June 2024 with diverticulosis and hemorrhoids. He also report recent negative capsule endoscopy. In review with patient hx admits to hx multiple myeloma in 2021 with transfusion required at that time. He admits to
hematology follow with periodic iron and Darbepoetin but last dose per heme 11/2024. Since that time he has had admission to [facility] with start of HD then [facility] and no further injections that he was aware of. From a GI standpoint he admits to
occasional diarrhea with greenish stool today but denies other GI issues.
-anemia iron studies with chronic disease
-recent foot surgery and started of HD
-EGD with non bleeding erosive gastritis
other med problems:
-afib(not on anticoagulation)
- multiple myeloma
-? guzmán's
- pacer
-HTN
-hyperlipidemia
-ESRD on HD(new since foot surgery)
PLAN:
etiology of anemia likely multi factorial with ERSD, heme related vs other-- pt with missed dose of Darbepoetin
no current sign GI bleeding
monitor stools for bleeding-- per staff stool green today and brown/yellow on admission
cont PPI BID
cont diet
trend hbg
agree with heme to restart Darbepoetin-- current retacrit order by heme
cont iron
if unexplained anemia or signs of GI loss repeat EGD with erosive gastritis
NSAID avoidance
-
-
Thank you for consultation and allowing me to participate in the patient's care. Please call the communication lecturer GI physician during the after hours with any questions or concerns.
[2025-04-10] MEDS: LANOXIN PO ×2 (18:05→19:19)
[2025-04-10] MEDS: LIPITOR 20 MG PO (18:08)
[2025-04-10 19:09] LABS: Hepatitis C Antibody Negative (Negative)
[2025-04-10 19:18] LABS: Hepatitis B Surface Antigen Negative (Negative)
[2025-04-10] MEDS: ROBITUSSIN DM 5 ML PO (22:37)
[2025-04-11] VITALS (8 sets, daily range): BP systolic 125–152; BP diastolic 50–62; PULSE 61; O2SAT 98; BMI 32.7
--- NOTE | 2025-04-11 08:07 | W.PN.ONC2 ---
Today's Communication / Plan
-
.
Impression
Impression
Acute on chronic anemia
Multiple myeloma last systemic therapy 06/23 with slow rise in M protein
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
History of Marshall's esophagus
ESRD
Charcot to foot with history of abscess
Atrial flutter/fib
Pacemaker
Hypertension
GERD
HDL
Plan
Plan
Baseline hemoglobin 9-10 g/dL
Patient previously receiving outpatient darbepoetin- last dose 11/26 for chronic renal disease consider will need to reinitiate darbepoetin posthospitalization
Last therapy for myeloma intervention Velcade 06/23 and Revlimid discontinued due to progressive renal insufficiency and cytopenias 03/24, bone marrow reduction of plasma cells to 1% at that time
Previous PET scan restaging for myeloma 11/26 negative for bone lesions
Iron studies appear to primarily reflect chronic disease
B12 folic acid in the normal range
Parenteral iron last administered 06/25 Monoferric parameters for outpatient resuscitation ferritin<500 and saturation less than 20%
Suspect the acute on chronic anemia secondary to AVM bleeding
GI consultation
Transfuse hemoglobin less than 7.0 g/dL
Will follow
Subjective/Objective
Subjective
no new complaints
Vital Signs:
Vital Signs
Temp Pulse Resp BP Pulse Ox
97.8 F 61 18 144/55 96
04/11/25 03:54 04/11/25 03:54 04/11/25 03:54 04/11/25 03:54 04/11/25 03:54
Lab Results:
Laboratory Data
WBC 7.7 10^3/uL (4.8-10.8) 04/10/25 07:18
Hgb 6.5 g/dL (13.0-18.0) L* 04/10/25 07:18
Plt Count 186 10^3/uL (130-400) 04/10/25 07:18
eGFR 34.16 04/10/25 07:18
Physical Exam
General: No Apparent Distress, Comfortable and Conversant; No Fever or Chills
HEENT:Anicteric, Moist mucous membranes
Respiratory: Clear; No Wheezes, Rales or Rhonchi
Cardiac: S1/S2 and Other (Paced); No Murmur, Rub or Gallop
GI: Soft, Non Tender, Non Distended,
Skin: Warm and Dry
Neuro: AO x 3, speech clear
[2025-04-11 08:43] LABS: Glucose - Point of Care 115 mg/dl (70-99)
[2025-04-11] MEDS: NSS (PRESERVATIVE FREE) 10 ML IV ×2 (09:38→21:49)
[2025-04-11] MEDS: PROTONIX IV 40 MG IV ×2 (09:38→21:49)
[2025-04-11] MEDS: OCUVITE SOFTGEL 1 CAP PO ×2 (09:38→21:49)
[2025-04-11] MEDS: ULORIC 40 MG PO (09:39)
[2025-04-11] MEDS: THERAGRAN 1 TABLET PO (09:39)
[2025-04-11] MEDS: FEOSOL 325 MG PO ×2 (09:39→21:49)
[2025-04-11] MEDS: TUMS CHEWABLE TABLET 200 MG PO ×2 (09:39→21:49)
[2025-04-11] MEDS: PACERONE 200 MG PO ×2 (09:40→21:49)
[2025-04-11] MEDS: RENVELA 1600 MG PO ×2 (09:41→13:58)
[2025-04-11] MEDS: COREG PO (09:41)
[2025-04-11 10:23] LABS: Blood Urea Nitrogen 26 mg/dl (9-20); Calcium 7.5 mg/dl (8.4-10.2); Carbon Dioxide 26 mmol/L (22-30); Chloride 103 mmol/L (98-107); Estimated Creatinine Clearance 23 ml/min; Glucose 111 mg/dl (70-99); Potassium 3.6 mmol/L (3.5-5.1); Sodium 134 mmol/L (135-145); eGFR 24.94
[2025-04-11 10:26] LABS: Hematocrit 24.3 % (39.0-52.0); Hemoglobin 8.0 g/dL (13.0-18.0); Mean Corp Hgb Conc. 32.9 g/dL (33.0-37.0); Mean Corpuscular Volume 89.3 fL (80.0-94.0); Nucleated Red Blood Cells % 0 % (-); Platelet Count 213 10^3/uL (130-400); Red Cell Dist. Width 15.9 % (11.5-14.5)
--- NOTE | 2025-04-11 11:04 | W.PN.HOSP.TC ---
Today's Communication/Plan
-
Dialysis today
Monitor hemoglobin
PT/OT
Assessment / Plan
Assessment / Plan
Gen-AAOx3, NAD
HEENT-NC, AT, anicteric, clear oral mm
Neck-supple
CV-reg, no M, +S1/S2
Lungs-clear B/L
Abd-soft, NT, ND
Ext-no edema
Musculoskeletal-no cyanosis, clubbing
Skin-warm and dry
Neuro-grossly non-focal
Psych-calm, cooperative
Acute on chronic anemia -etiology of acute anemia unclear. No obvious evidence of bleeding. Patient denies melena or hematochezia, denies nausea or vomiting. Reportedly has a history of GI bleed in the past. Patient states that he had upper and
lower endoscopy as well as capsule endoscopy in the past couple months and [facility] that was negative.
Differential diagnosis for anemia includes ESRD, GI bleed, etc.
Not iron deficient based on labs. B12 and folic acid normal.
Hemoglobin improved to 8.0 today. Transfused 2 units of blood so far this admission. Monitor hemoglobin.
GI has seen him in consultation, they recommend conservative management. No plans for endoscopic workup.
Apparently was not on Eliquis in the fpc, not listed on MAR obtained from fpc.
ESRD -on dialysis Monday, Monday, Monday. Social work arranging for outpatient dialysis unit. Nephrology following.
Atrial flutter/atrial fibrillation -unknown type. His prop cutter is Dr. Hansel Majano. I called Dr. Majano's office and left a message for him to call me back, so far no callback. Does not appear to be on Eliquis currently for unclear reasons.
Hyperlipidemia -atorvastatin.
History of multiple myeloma -appreciate oncology input.
Right sided Charcot foot -s/p surgical correction 02/04/2025 and [facility]. Heel touch weightbearing allowed. Follow-up with podiatry.
Permanent pacemaker
Essential hypertension -stable.
GERD
Hyponatremia - stable.
Obesity due to excess calories
Full code
PT/OT
Dispo -pending PT/OT input and medical stability. Possible d/c home with VN.
Anticipated Discharge: Within 24 hours
Subjective/Interval History
-
Date of Service: April 11, 2025
Patient seen and examined. No complaints.
Objective Data
-
Labs:
Laboratory Results
04/11/25
09:55
WBC 7.9
Hgb 8.0 L D
Hct 24.3 L
Plt Count 213
Sodium 134 L
Potassium 3.6
Chloride 103
Carbon Dioxide 26
BUN 26 H
Creatinine 2.6 H
Glucose 111 H
Calcium 7.5 L
Vital Signs:
Vital Signs
Temp Pulse Resp BP Pulse Ox
97.7 F 61 20 146/55 96
04/11/25 07:00 04/11/25 09:40 04/11/25 07:00 04/11/25 09:40 04/11/25 10:15
I&O
04/10/25 04/11/25 04/12/25
06:59 06:59 06:59
Intake Total 490 / 490 1210 / 1210
Balance 490 / 490 1210 / 1210
Review of Systems
-
History Source: Patient
All other systems: Reviewed and negative
--- NOTE | 2025-04-11 11:44 | CM ---
Addendum entered by Keyon Kuhn 04/11/25 14:33:
CM spoke to [facility] corporate general manager Piter and she stated that pt's dialysis chair will be secured at [facility] center for T, Th and Sat, midday time.
Pt is aware, expressed his agreement.
CM will fax requested HD flow sheets when available.
Awaiting for Welcome Letter from [facility].
[facility] liaison confirmed that pt is accepted for VN services.
Original Note:
CM following re: discharge planning.
Reviewed pt's chart, met with pt.
CM faxed a referral to [facility] to set up outpatient HD treatment at [facility] center on [facility] or [facility] at [facility]. Awaiting for confirmation and Welcome letter.
Pt's address: [address] [place] [address].
[facility] has accepted the pt for services. CM confirmed it with [facility] liaison.
D/C plan: home with [facility] and outpatient HD treatment at [facility] center: [facility] or [facility]. Awaiting for [facility] confirmation.
CM will follow with discharge plan updates as hospitalization progresses
[2025-04-11] MEDS: SANTYL OINTMENT 1 APPLIC TOPICAL (15:38)
[2025-04-11] MEDS: RENVELA PO (17:02)
[2025-04-11] MEDS: LIPITOR 20 MG PO (17:02)
[2025-04-11] MEDS: RETACRIT 10000 UNITS IV (18:22)
--- NOTE | 2025-04-11 18:26 | W.PN.NEPH.HD ---
Assessment
-
pt seen during HD
vitals stable
hb better post pRBC, high dose SALVADOR
cr increasing trend pre HD , no renal recovery noted
pt reports CKD3 before admitting to [facility]
CVC functions fine
Progress Note - Hemodialysis
-
Date of Service: April 11, 2025
Duration: 30 minutes and 3 hours
Potassium Bath: 3
Calcium Bath: 2.5
Opti-Dialyzer: 160
Ultrafiltration: Other (1-2kg)
Blood Flow: 400
Dialysate Flow: 600
Heparin: no
EPO: [id number]
[2025-04-11] MEDS: HEPARIN 3800 UNITS INTRACATH (20:12)
[2025-04-11] MEDS: COREG 12.5 MG PO (21:51)
[2025-04-11] MEDS: TYLENOL 650 MG PO (21:52)
[2025-04-12] VITALS (7 sets, daily range): BP systolic 137–162; BP diastolic 50–94; BMI 32.1
[2025-04-12 07:26] LABS: Blood Urea Nitrogen 16 mg/dl (9-20); Calcium 7.5 mg/dl (8.4-10.2); Carbon Dioxide 27 mmol/L (22-30); Chloride 106 mmol/L (98-107); Estimated Creatinine Clearance 32 ml/min; Glucose 103 mg/dl (70-99); Potassium 3.3 mmol/L (3.5-5.1); Sodium 137 mmol/L (135-145); eGFR 36.33
[2025-04-12 07:31] LABS: Hematocrit 21.1 % (39.0-52.0); Hemoglobin 6.9 g/dL (13.0-18.0); Mean Corp Hgb Conc. 32.7 g/dL (33.0-37.0); Mean Corpuscular Volume 89.4 fL (80.0-94.0); Nucleated Red Blood Cells % 0 % (-); Platelet Count 177 10^3/uL (130-400); Red Cell Dist. Width 15.8 % (11.5-14.5)
[2025-04-12] MEDS: THERAGRAN 1 TABLET PO (08:41)
[2025-04-12] MEDS: OCUVITE SOFTGEL 1 CAP PO ×2 (08:41→21:17)
[2025-04-12] MEDS: TUMS CHEWABLE TABLET 200 MG PO ×2 (08:41→21:18)
[2025-04-12] MEDS: COREG 12.5 MG PO ×2 (08:41→21:17)
[2025-04-12] MEDS: RENVELA 1600 MG PO ×3 (08:41→17:24)
[2025-04-12] MEDS: PACERONE 200 MG PO ×2 (08:41→21:17)
[2025-04-12] MEDS: FEOSOL 325 MG PO ×2 (08:41→21:17)
[2025-04-12] MEDS: ULORIC 40 MG PO (08:41)
[2025-04-12] MEDS: SANTYL OINTMENT 1 APPLIC TOPICAL (08:42)
--- NOTE | 2025-04-12 09:28 | W.PN.HOSP.TC ---
Today's Communication/Plan
-
Oral potassium
Transfuse
Check magnesium
Assessment / Plan
Assessment / Plan
Gen-AAOx3, NAD
HEENT-NC, AT, anicteric, clear oral mm
Neck-supple
CV-reg, no M, +S1/S2
Lungs-clear B/L
Abd-soft, NT, ND
Ext-no edema
Musculoskeletal-no cyanosis, clubbing
Skin-warm and dry
Neuro-grossly non-focal
Psych-calm, cooperative
Acute on chronic anemia -etiology of acute anemia unclear. No obvious evidence of bleeding. Patient denies melena or hematochezia, denies nausea or vomiting. Reportedly has a history of GI bleed in the past. Patient states that he had upper and
lower endoscopy as well as capsule endoscopy in the past couple months and [facility] that was negative.
Differential diagnosis for anemia includes ESRD, GI bleed, etc.
Not iron deficient based on labs. B12 and folic acid normal.
Hemoglobin still low today, 6.9. Was 8.0 yesterday. No obvious bleeding clinically. Will transfuse again today. This will be third unit of transfusion this admission.
Bilirubin and LDH normal, doubt hemolysis.
GI has seen him in consultation, they recommend conservative management. No plans for endoscopic workup.
Apparently was not on Eliquis in the residential, not listed on NOV obtained from residential.
ESRD -on dialysis Monday, Monday, Monday. Social work arranging for outpatient dialysis unit. Nephrology following.
Atrial flutter/atrial fibrillation -unknown type. His configuration developer is Dr. Hansel Majano. I called Dr. Majano's office and left a message for him to call me back, so far no callback. Does not appear to be on Eliquis currently for unclear reasons.
Hyperlipidemia -atorvastatin.
History of multiple myeloma -appreciate oncology input.
Right sided Charcot foot -s/p surgical correction 02/04/2025 and [facility]. Heel touch weightbearing allowed. Follow-up with podiatry.
Permanent pacemaker
Essential hypertension -stable.
GERD
Hyponatremia -improved.
Hypokalemia -will replete. Check magnesium.
Obesity due to excess calories
Full code
PT/OT
Dispo -will need SNF on discharge according to PT/OT. Case management to assist.
Anticipated Discharge: > 48 hours
Subjective/Interval History
-
Date of Service: April 12, 2025
Patient seen and examined, no complaints.
Objective Data
-
Labs:
Laboratory Results
04/12/25
06:28
WBC 7.3
Hgb 6.9 L*
Hct 21.1 L
Plt Count 177
Sodium 137
Potassium 3.3 L
Chloride 106
Carbon Dioxide 27
BUN 16
Creatinine 1.9 H
Glucose 103 H
Calcium 7.5 L
Vital Signs:
Vital Signs
Temp Pulse Resp BP Pulse Ox
98.3 F 62 16 148/65 96
04/12/25 07:00 04/12/25 07:00 04/12/25 07:00 04/12/25 07:00 04/12/25 03:21
I&O
04/11/25 04/12/25 04/13/25
06:59 06:59 06:59
Intake Total 1210 / 1210 960 / 960
Balance 1210 / 1210 960 / 960
Review of Systems
-
History Source: Patient
All other systems: Reviewed and negative
[2025-04-12] MEDS: NSS (PRESERVATIVE FREE) 10 ML IV ×2 (09:31→21:17)
[2025-04-12] MEDS: KCL 40 MEQ PO (09:31)
[2025-04-12] MEDS: PROTONIX IV 40 MG IV ×2 (09:32→21:17)
[2025-04-12 10:09] LABS: Magnesium 1.7 mg/dl (1.6-2.3)
--- NOTE | 2025-04-12 13:24 | W.PN.NEPH.PH ---
Today's Communication / Plan
-
HD onMOnday
Assessment/Plan
-
Impression
Acute on chronic anemia
Multiple myeloma last systemic therapy 06/23
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
History of Marshall's esophagus
ESRD
Charcot to foot with history of abscess, surgery
Atrial flutter/fib
Pacemaker
Hypertension
GERD
Plan
Next dialysis Monday, follow pre HD cr
SALVADOR on dialysis
Transfuse today again for anemia
replace k, change diet to low sodium and remove low k diet
Will try and obtain records from [facility]
He has run out of benefits and will not be returning to [facility]
Will need outpatient dialysis unit arrangements closer to home, likely in [place]
neg hepatitis serologies
-
-
Date of Service: April 12, 2025
CC / HPI / ROS
-
Chief Complaint:
DANIEL on HD
History of Present Illness:
cr low post HD but increasing pre HD
BP stable, hb low 6.9
k low 3.3
Review of Systems:
no cp ro sob
no dysuria-UOP slow to improve
Labs
-
Labs:
WBC 7.3 10^3/uL (4.8-10.8) 04/12/25 06:28
RBC 2.36 10^6/uL (4.70-6.10) L 04/12/25 06:28
Hgb 6.9 g/dL (13.0-18.0) L* 04/12/25 06:28
Hct 21.1 % (39.0-52.0) L 04/12/25 06:28
Plt Count 177 10^3/uL (130-400) 04/12/25 06:28
Sodium 137 mmol/L (135-145) 04/12/25 06:28
Potassium 3.3 mmol/L (3.5-5.1) L 04/12/25 06:28
Chloride 106 mmol/L (98-107) 04/12/25 06:28
Carbon Dioxide 27 mmol/L (22-30) 04/12/25 06:28
BUN 16 mg/dl (9-20) 04/12/25 06:28
Creatinine 1.9 mg/dL (0.7-1.3) H 04/12/25 06:28
eGFR 36.33 04/12/25 06:28
Glucose 103 mg/dl (70-99) H 04/12/25 06:28
Calcium 7.5 mg/dl (8.4-10.2) L 04/12/25 06:28
Albumin 3.0 g/dl (3.5-5.0) L 04/09/25 19:58
Physical Exam
-
Vital Signs:
Vital Signs
Temp Pulse Resp BP Pulse Ox
97.7 F 61 18 139/57 96
04/12/25 11:37 04/12/25 11:37 04/12/25 11:37 04/12/25 11:37 04/12/25 03:21
Cardiovascular:: Regular rate and rhythm
Respiratory:: Bilateral: CTA
Lung Excursion:: Normal
Abdomen:: Nontender and Soft
Extremity Edema:: +1: Bilateral:
Pratt Catheter: No
[2025-04-12] MEDS: LANOXIN 125 MCG PO (17:24)
[2025-04-12] MEDS: LIPITOR 20 MG PO (17:24)
[2025-04-13 04:00] VITALS: BMI 32.1
[2025-04-13 06:00] VITALS: BMI 32.7
[2025-04-13 06:50] LABS: Hematocrit 24.2 % (39.0-52.0); Hemoglobin 8.1 g/dL (13.0-18.0); Mean Corp Hgb Conc. 33.5 g/dL (33.0-37.0); Mean Corpuscular Volume 89.3 fL (80.0-94.0); Nucleated Red Blood Cells % 0 % (-); Platelet Count 175 10^3/uL (130-400); Red Cell Dist. Width 15.9 % (11.5-14.5)
[2025-04-13 07:10] LABS: Blood Urea Nitrogen 26 mg/dl (9-20); Calcium 7.6 mg/dl (8.4-10.2); Carbon Dioxide 26 mmol/L (22-30); Chloride 105 mmol/L (98-107); Estimated Creatinine Clearance 25 ml/min; Glucose 116 mg/dl (70-99); Potassium 4.1 mmol/L (3.5-5.1); Sodium 136 mmol/L (135-145); eGFR 27.45
[2025-04-13 07:39] VITALS: BP 165/72
[2025-04-13] MEDS: RENVELA 1600 MG PO ×3 (09:12→17:45)
[2025-04-13] MEDS: TUMS CHEWABLE TABLET 200 MG PO ×2 (09:12→20:40)
[2025-04-13] MEDS: THERAGRAN 1 TABLET PO (09:12)
[2025-04-13] MEDS: OCUVITE SOFTGEL 1 CAP PO ×2 (09:12→20:40)
[2025-04-13] MEDS: COREG 12.5 MG PO ×2 (09:13→20:40)
[2025-04-13] MEDS: ULORIC 40 MG PO (09:13)
[2025-04-13] MEDS: PACERONE 200 MG PO ×2 (09:13→20:40)
[2025-04-13] MEDS: FEOSOL 325 MG PO ×2 (09:13→20:40)
[2025-04-13] MEDS: NSS (PRESERVATIVE FREE) 10 ML IV ×2 (09:15→22:02)
[2025-04-13] MEDS: SANTYL OINTMENT 1 APPLIC TOPICAL (09:15)
[2025-04-13] MEDS: PROTONIX IV 40 MG IV ×2 (09:16→22:02)
--- NOTE | 2025-04-13 10:44 | W.PN.HOSP.TC ---
Today's Communication/Plan
-
Continue current care
Assessment / Plan
Assessment / Plan
Gen-AAOx3, NAD
HEENT-NC, AT, anicteric, clear oral mm
Neck-supple
CV-reg, no M, +S1/S2
Lungs-clear B/L
Abd-soft, NT, ND
Ext-no edema
Musculoskeletal-no cyanosis, clubbing
Skin-warm and dry
Neuro-grossly non-focal
Psych-calm, cooperative
Acute on chronic anemia -etiology of acute anemia unclear. No obvious evidence of bleeding. Stools have been brown in the hospital. Patient denies melena or hematochezia, denies nausea or vomiting. Reportedly has a history of GI bleed in the
past. Patient states that he had upper and lower endoscopy as well as capsule endoscopy in the past couple months and [facility] that was negative.
Differential diagnosis for anemia includes ESRD, GI bleed, etc.
Not iron deficient based on labs. B12 and folic acid normal.
Hemoglobin improved to 8.1 today. Has had 3 units PRBCs transfused so far. Monitor hemoglobin.
Bilirubin and LDH normal, doubt hemolysis.
GI has seen him in consultation, they recommend conservative management. No plans for endoscopic workup.
Apparently was not on Eliquis in the intermediate, not listed on MAR obtained from intermediate.
ESRD -on dialysis Monday, Monday, Monday. Social work arranging for outpatient dialysis unit. Nephrology following.
Atrial flutter/atrial fibrillation -unknown type. His edge dyer is Dr. Hansel Majano. I called Dr. Majano's office on 2 separate occasions and left messages for him to call me back, so far no callback. Does not appear to be on Eliquis currently
for unclear reasons.
Hyperlipidemia -atorvastatin.
History of multiple myeloma -appreciate oncology input.
Right sided Charcot foot -s/p surgical correction 02/04/2025 and [facility]. Heel touch weightbearing allowed. Follow-up with podiatry.
Permanent pacemaker
Essential hypertension -stable.
GERD
Hyponatremia -improved.
Hypokalemia -will replete. Check magnesium.
Obesity due to excess calories
Full code
PT/OT
Dispo -will need SNF on discharge according to PT/OT. Case management to assist. Will need dialysis clinic assignment.
Anticipated Discharge: 24 - 48 hours
Subjective/Interval History
-
Date of Service: April 13, 2025
Patient seen and examined. No complaints.
Objective Data
-
Labs:
Laboratory Results
04/13/25
06:25
WBC 7.2
Hgb 8.1 L
Hct 24.2 L
Plt Count 175
Sodium 136
Potassium 4.1
Chloride 105
Carbon Dioxide 26
BUN 26 H
Creatinine 2.4 H
Glucose 116 H
Calcium 7.6 L
Vital Signs:
Vital Signs
Temp Pulse Resp BP Pulse Ox
97.7 F 62 16 165/72 99
04/13/25 07:39 04/13/25 09:13 04/13/25 07:39 04/13/25 09:13 04/13/25 07:39
I&O
04/12/25 04/13/25 04/14/25
06:59 06:59 06:59
Intake Total 960 / 960 1390 / 1390
Balance 960 / 960 1390 / 1390
Review of Systems
-
History Source: Patient
All other systems: Reviewed and negative
[2025-04-13 11:00] VITALS: BP 156/59
--- NOTE | 2025-04-13 12:16 | W.PN.NEPH.PH ---
Today's Communication / Plan
-
HD tomorrow
Assessment/Plan
-
Impression
Acute on chronic anemia
Multiple myeloma last systemic therapy 06/23
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
History of Marshall's esophagus
ESRD
Charcot to foot with history of abscess, surgery
Atrial flutter/fib
Pacemaker
Hypertension
GERD
Plan
Next dialysis Monday, follow pre HD cr-increasing trend
SALVADOR on dialysis, prn transfusion
Will try and obtain records from [facility]
He has run out of benefits and will not be returning to [facility]
Will need outpatient dialysis unit arrangements closer to home, likely in [place]
neg hepatitis serologies
-
-
Date of Service: April 13, 2025
CC / HPI / ROS
-
Chief Complaint:
DANIEL on HD
History of Present Illness:
cr low post HD but increasing pre HD
BP stable, hb better at 8.1 post PRBC
k normal
Review of Systems:
no cp ro sob
Labs
-
Labs:
WBC 7.2 10^3/uL (4.8-10.8) 04/13/25 06:25
RBC 2.71 10^6/uL (4.70-6.10) L 04/13/25 06:25
Hgb 8.1 g/dL (13.0-18.0) L 04/13/25 06:25
Hct 24.2 % (39.0-52.0) L 04/13/25 06:25
Plt Count 175 10^3/uL (130-400) 04/13/25 06:25
Sodium 136 mmol/L (135-145) 04/13/25 06:25
Potassium 4.1 mmol/L (3.5-5.1) 04/13/25 06:25
Chloride 105 mmol/L (98-107) 04/13/25 06:25
Carbon Dioxide 26 mmol/L (22-30) 04/13/25 06:25
BUN 26 mg/dl (9-20) H 04/13/25 06:25
Creatinine 2.4 mg/dL (0.7-1.3) H 04/13/25 06:25
eGFR 27.45 04/13/25 06:25
Glucose 116 mg/dl (70-99) H 04/13/25 06:25
Calcium 7.6 mg/dl (8.4-10.2) L 04/13/25 06:25
Albumin 3.0 g/dl (3.5-5.0) L 04/09/25 19:58
Physical Exam
-
Vital Signs:
Vital Signs
Temp Pulse Resp BP Pulse Ox
97.8 F 62 16 156/59 97
04/13/25 11:00 04/13/25 11:00 04/13/25 11:00 04/13/25 11:00 04/13/25 11:00
Cardiovascular:: Regular rate and rhythm
Respiratory:: Bilateral: CTA
Lung Excursion:: Normal
Abdomen:: Nontender and Soft
Extremity Edema:: +1: Bilateral: (right>left)
Pratt Catheter: No
[2025-04-13 12:29] VITALS: BP 150/62; PULSE 60; O2SAT 98
[2025-04-13 16:20] VITALS: BP 162/71
[2025-04-13] MEDS: LIPITOR 20 MG PO (17:45)
[2025-04-13 19:51] VITALS: BP 159/68
[2025-04-13] MEDS: ROBITUSSIN DM 5 ML PO (22:58)
[2025-04-13 23:03] VITALS: BP 166/77
[2025-04-14] VITALS (7 sets, daily range): BP systolic 141–163; BP diastolic 63–69; BMI 32.7; BMI 33.0
[2025-04-14 07:15] LABS: Hematocrit 26.0 % (39.0-52.0); Hemoglobin 8.4 g/dL (13.0-18.0); Mean Corp Hgb Conc. 32.3 g/dL (33.0-37.0); Mean Corpuscular Volume 90.0 fL (80.0-94.0); Nucleated Red Blood Cells % 0 % (-); Platelet Count 199 10^3/uL (130-400); Red Cell Dist. Width 15.8 % (11.5-14.5)
--- NOTE | 2025-04-14 08:32 | W.PN.ONC2 ---
Today's Communication / Plan
-
daily CBC, transfuse prn
Impression
Impression
Acute on chronic anemia
Multiple myeloma last systemic therapy 06/23 with slow rise in M protein
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
History of Marshall's esophagus
ESRD
Charcot to foot with history of abscess
Atrial flutter/fib
Pacemaker
Hypertension
GERD
HDL
Plan
Plan
Baseline hemoglobin 9-10 g/dL
Patient previously receiving outpatient darbepoetin- last dose 11/26 for chronic renal disease consider will need to reinitiate darbepoetin posthospitalization
Last therapy for myeloma intervention Velcade 06/23 and Revlimid discontinued due to progressive renal insufficiency and cytopenias 03/24, bone marrow reduction of plasma cells to 1% at that time
Previous PET scan restaging for myeloma 11/26 negative for bone lesions
Transfuse hemoglobin less than 7.0 g/dL
Subjective/Objective
Subjective
no new complaints
Vital Signs:
Vital Signs
Temp Pulse Resp BP Pulse Ox
97.7 F 61 18 154/66 97
04/14/25 07:05 04/14/25 07:05 04/14/25 07:05 04/14/25 07:05 04/14/25 07:05
Lab Results:
Laboratory Data
WBC 7.2 10^3/uL (4.8-10.8) 04/14/25 06:46
Hgb 8.4 g/dL (13.0-18.0) L 04/14/25 06:46
Plt Count 199 10^3/uL (130-400) 04/14/25 06:46
eGFR 27.45 04/13/25 06:25
Physical Exam
General: No Apparent Distress, Comfortable and Conversant; No Fever or Chills
HEENT:Anicteric, Moist mucous membranes
Respiratory: Clear; No Wheezes, Rales or Rhonchi
Cardiac: S1/S2,Paced
GI: Soft, Non Tender, Non Distended,
Skin: Warm and Dry
Neuro: AO x 3, speech clear
[2025-04-14] MEDS: RETACRIT 10000 UNITS IV (10:33)
--- NOTE | 2025-04-14 10:35 | W.PN.NEPH.HD ---
Assessment
-
Seen on dialysis tolerating treatment and ultrafiltration
Progress Note - Hemodialysis
-
Date of Service: April 14, 2025
Duration: 30 minutes and 3 hours
Potassium Bath: 3
Calcium Bath: 2.5
Opti-Dialyzer: 160
Ultrafiltration: Other (1-2kg)
Blood Flow: 400
Dialysate Flow: 600
Heparin: no
EPO: [id number]
[2025-04-14] MEDS: PROTONIX IV 40 MG IV ×2 (12:48→21:29)
[2025-04-14] MEDS: NSS (PRESERVATIVE FREE) 10 ML IV ×2 (12:49→21:30)
[2025-04-14] MEDS: FEOSOL 325 MG PO ×2 (12:51→21:28)
[2025-04-14] MEDS: THERAGRAN 1 TABLET PO (12:51)
[2025-04-14] MEDS: ULORIC 40 MG PO (12:51)
[2025-04-14] MEDS: OCUVITE SOFTGEL 1 CAP PO ×2 (12:51→21:28)
[2025-04-14] MEDS: TUMS CHEWABLE TABLET 200 MG PO ×2 (12:51→21:29)
[2025-04-14] MEDS: PACERONE 200 MG PO ×2 (12:51→21:29)
[2025-04-14] MEDS: COREG 12.5 MG PO ×2 (12:51→21:29)
[2025-04-14] MEDS: RENVELA 1600 MG PO ×2 (12:52→17:35)
[2025-04-14] MEDS: RENVELA PO (13:01)
[2025-04-14] MEDS: HEPARIN 3800 UNITS INTRACATH (13:04)
--- NOTE | 2025-04-14 13:06 | W.PN.HOSP.TC ---
Today's Communication/Plan
-
Hg stable with no evidence for acute blood loss or hemolysis
HD as per schedule
Discharge planning
Assessment / Plan
Assessment / Plan
Acute on chronic anemia -etiology of acute anemia unclear. No obvious evidence of bleeding. Stools have been brown in the hospital. Patient denies melena or hematochezia, denies nausea or vomiting. Reportedly has a history of GI bleed in the
past. Patient states that he had upper and lower endoscopy as well as capsule endoscopy in the past couple months and [facility] that was negative.
Differential diagnosis for anemia includes ESRD, GI bleed, etc.
Not iron deficient based on labs. B12 and folic acid normal.
Hemoglobin improved to 8.4 today. Has had 3 units PRBCs transfused so far. Monitor hemoglobin.
Bilirubin and LDH normal, doubt hemolysis.
GI has seen him in consultation, they recommend conservative management. No plans for endoscopic workup.
Apparently was not on Eliquis in the custodial, not listed on MAR obtained from custodial.
ESRD -on dialysis Monday, Monday, Monday. Social work arranging for outpatient dialysis unit. Nephrology following.
Atrial flutter/atrial fibrillation -unknown type. His powerhouse laborer is Dr. Hansel Majano. Dr. Majano's office had been contacted on on 2 separate occasions and left messages for him to call me back, so far no callback. Does not appear to be on
Eliquis currently for unclear reasons.
Hyperlipidemia -atorvastatin.
History of multiple myeloma -appreciate oncology input.
Right sided Charcot foot -s/p surgical correction 02/04/2025 and [facility]. Heel touch weightbearing allowed. Follow-up with podiatry.
Permanent pacemaker
Essential hypertension -stable.
GERD
Hyponatremia -improved.
Hypokalemia -will replete. Check magnesium.
Obesity due to excess calories
Full code
PT/OT
Dispo -will need SNF on discharge according to PT/OT. Case management to assist. Will need dialysis clinic assignment.
Anticipated Discharge: Within 24 hours
Subjective/Interval History
-
Date of Service: April 14, 2025
Objective Data
-
Labs:
Laboratory Results
04/14/25
06:46
WBC 7.2
Hgb 8.4 L
Hct 26.0 L
Plt Count 199
Vital Signs:
Vital Signs
Temp Pulse Resp BP Pulse Ox
97.7 F 60 16 141/65 98
04/14/25 11:00 04/14/25 11:00 04/14/25 11:00 04/14/25 11:00 04/14/25 11:00
I&O
04/13/25 04/14/25 04/15/25
06:59 06:59 06:59
Intake Total 1390 / 1390
Balance 1390 / 1390
Physical Exam
-
General: Well Developed and No Apparent Distress
HEENT: Normocephalic, Atraumatic and Moist Mucous Membranes
Respiratory: Clear to Auscultation
Cardiac: Regular Rhythm and S1/S2; Negative Murmur, Rub or Gallop
GI: Soft, Nontender, Nondistended and Normal Bowel Sounds; Negative Organomegaly
Rectal: Deferred by Provider
Musculoskeletal: No Clubbing, No Cyanosis and No Edema
Skin: Negative Rash
Neuro: Nonfocal/Grossly Intact
--- NOTE | 2025-04-14 13:34 | W.PN.UPDATE ---
Update Note
Progress Note Update
Pending acceptance at [facility] schedule. Based on that he can start outpatient on and will not need a dialysis tomorrow inpatient if still here
[2025-04-14] MEDS: SANTYL OINTMENT 1 APPLIC TOPICAL (14:46)
--- NOTE | 2025-04-14 15:13 | CM ---
CM following re: discharge planning.
Reviewed pt's chart, met with pt.
CM spoke to [facility] corporate admissions department professional healthcare representative Libertad and she confirmed no confirmation has been made on accepting the pt fpor outpatient HD treatment at [facility]. Per Libertad, she will call me ]back with confirmation.
[facility] liaison following.
PT and OT evaluation s noted - SNF level of care recommended. pt is aware, politely declined SNF and preferred to return back hoe with [facility].
Awaiting for confirmation from [facility] corporate.
D/C plan: home with [facility] and outpatient HD treatment at [facility].
[2025-04-14] MEDS: LIPITOR 20 MG PO (17:35)
[2025-04-14] MEDS: ROBITUSSIN DM 5 ML PO (22:43)
[2025-04-15 00:26] LABS: Glucose - Point of Care 135 mg/dl (70-99)
[2025-04-15 03:00] VITALS: BP 152/66
[2025-04-15 05:43] VITALS: BMI 32.3
[2025-04-15 07:20] VITALS: BP 143/62
--- NOTE | 2025-04-15 08:47 | W.PN.ONC2 ---
Today's Communication / Plan
-
Discharge planning
Impression
Impression
Acute on chronic anemia
Multiple myeloma last systemic therapy 06/23 with slow rise in M protein
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
History of Marshall's esophagus
ESRD
Charcot to foot with history of abscess
Atrial flutter/fib
Pacemaker
Hypertension
GERD
HDL
Plan
Plan
Baseline hemoglobin 9-10 g/dL
Patient previously receiving outpatient darbepoetin- last dose 11/26 for chronic renal disease consider will need to reinitiate darbepoetin posthospitalization
Last therapy for myeloma intervention Velcade 06/23 and Revlimid discontinued due to progressive renal insufficiency and cytopenias 03/24, bone marrow reduction of plasma cells to 1% at that time
Previous PET scan restaging for myeloma 11/26 negative for bone lesions
Transfuse hemoglobin less than 7.0 g/dL
Subjective/Objective
Subjective
no new complaints
Vital Signs:
Vital Signs
Temp Pulse Resp BP Pulse Ox
98.0 F 61 20 143/62 97
04/15/25 07:20 04/15/25 07:20 04/15/25 07:20 04/15/25 07:20 04/15/25 07:20
Lab Results:
Laboratory Data
WBC 7.2 10^3/uL (4.8-10.8) 04/14/25 06:46
Hgb 8.4 g/dL (13.0-18.0) L 04/14/25 06:46
Plt Count 199 10^3/uL (130-400) 04/14/25 06:46
eGFR 27.45 04/13/25 06:25
Physical Exam
General: No Apparent Distress, Comfortable and Conversant; No Fever or Chills
HEENT:Anicteric, Moist mucous membranes
Respiratory: Clear; No Wheezes, Rales or Rhonchi
Cardiac: S1/S2,Paced
GI: Soft, Non Tender, Non Distended,
Skin: Warm and Dry
Neuro: AO x 3, speech clear
[2025-04-15] MEDS: RENVELA 1600 MG PO ×3 (09:07→16:50)
[2025-04-15] MEDS: FEOSOL 325 MG PO (09:09)
[2025-04-15] MEDS: COREG 12.5 MG PO (09:09)
[2025-04-15] MEDS: ULORIC 40 MG PO (09:09)
[2025-04-15] MEDS: OCUVITE SOFTGEL 1 CAP PO (09:09)
[2025-04-15] MEDS: TUMS CHEWABLE TABLET 200 MG PO (09:09)
[2025-04-15] MEDS: SANTYL OINTMENT 1 APPLIC TOPICAL (09:09)
[2025-04-15] MEDS: THERAGRAN 1 TABLET PO (09:09)
[2025-04-15] MEDS: PACERONE 200 MG PO (09:10)
[2025-04-15] MEDS: NSS (PRESERVATIVE FREE) 10 ML IV (09:13)
[2025-04-15] MEDS: PROTONIX IV 40 MG IV (09:13)
--- NOTE | 2025-04-15 10:59 | W.PN.NEPH.PH ---
Today's Communication / Plan
-
Stable for discharge today
Next dialysis will be at [place]
Assessment/Plan
-
Impression
Acute on chronic anemia
Multiple myeloma last systemic therapy 06/23
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
History of Marshall's esophagus
ESRD
Charcot to foot with history of abscess, surgery
Atrial flutter/fib
Pacemaker
Hypertension
GERD
Plan
Next dialysis will be for at [facility] unit
Stable for discharge today
SALVADOR on dialysis, prn transfusion
He has run out of benefits and will not be returning to [facility]
neg hepatitis serologies
-
-
Date of Service: April 15, 2025
CC / HPI / ROS
-
Chief Complaint:
DANIEL on HD
History of Present Illness:
cr low post HD but increasing pre HD
BP stable, hb better at 8.4 post PRBC
k normal
Review of Systems:
no cp or sob
Labs
-
Labs:
WBC 7.2 10^3/uL (4.8-10.8) 04/14/25 06:46
RBC 2.89 10^6/uL (4.70-6.10) L 04/14/25 06:46
Hgb 8.4 g/dL (13.0-18.0) L 04/14/25 06:46
Hct 26.0 % (39.0-52.0) L 04/14/25 06:46
Plt Count 199 10^3/uL (130-400) 04/14/25 06:46
Sodium 136 mmol/L (135-145) 04/13/25 06:25
Potassium 4.1 mmol/L (3.5-5.1) 04/13/25 06:25
Chloride 105 mmol/L (98-107) 04/13/25 06:25
Carbon Dioxide 26 mmol/L (22-30) 04/13/25 06:25
BUN 26 mg/dl (9-20) H 04/13/25 06:25
Creatinine 2.4 mg/dL (0.7-1.3) H 04/13/25 06:25
eGFR 27.45 04/13/25 06:25
Glucose 116 mg/dl (70-99) H 04/13/25 06:25
Calcium 7.6 mg/dl (8.4-10.2) L 04/13/25 06:25
Albumin 3.0 g/dl (3.5-5.0) L 04/09/25 19:58
Physical Exam
-
Vital Signs:
Vital Signs
Temp Pulse Resp BP Pulse Ox
98.0 F 61 20 143/62 97
04/15/25 07:20 04/15/25 09:10 04/15/25 07:20 04/15/25 09:10 04/15/25 10:38
Cardiovascular:: Regular rate and rhythm
Respiratory:: Bilateral: CTA
Lung Excursion:: Normal
Abdomen:: Nontender and Soft
Extremity Edema:: +1: Bilateral: (right>left)
Pratt Catheter: No
[2025-04-15 11:14] VITALS: BP 151/56; PULSE 60; O2SAT 98
[2025-04-15 11:27] VITALS: BP 151/86
[2025-04-15 11:42] VITALS: BP 151/56; PULSE 61; O2SAT 99
--- NOTE | 2025-04-15 11:44 | W.DCSUMMARY ---
Discharge Summary
Discharge Data
Date of Admission: 04/09/25
Date of Discharge: 04/15/25
-
Pending Results: No
Hospital Course
Acute on chronic anemia -etiology of acute anemia unclear. No obvious evidence of bleeding. Stools have been brown in the hospital. Patient denies melena or hematochezia, denies nausea or vomiting. Reportedly has a history of GI bleed in the
past. Patient states that he had upper and lower endoscopy as well as capsule endoscopy in the past couple months and [facility] that was negative.
Differential diagnosis for anemia includes ESRD, GI bleed, etc.
Not iron deficient based on labs. B12 and folic acid normal.
Hemoglobin improved to 8.4 today. Has had 3 units PRBCs transfused so far. Monitor hemoglobin.
Bilirubin and LDH normal, doubt hemolysis.
GI has seen him in consultation, they recommend conservative management. No plans for endoscopic workup.
Apparently was not on Eliquis prior to presentation, not listed on MAR obtained from [facility].
ESRD -on dialysis Monday, Monday, Monday. Outpatient dialysis has been arranged.
Atrial flutter/atrial fibrillation -unknown type. 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 Dr. Majano's office had been contacted on on 2 separate occasions and left messages for him to call me back, so far no callback. Does not appear to be on
Eliquis currently for unclear reasons.
Hyperlipidemia -atorvastatin.
History of multiple myeloma -appreciate oncology input.
Right sided Charcot foot -s/p surgical correction 02/04/2025 and [facility]. Heel touch weightbearing allowed. Follow-up with podiatry.
Permanent pacemaker
Essential hypertension -stable.
GERD
Hyponatremia -improved.
Hypokalemia -will replete. Check magnesium.
Obesity due to excess calories
Discharge Plan
-
Patient Disposition: Home (Routine Discharge)
Discharge Diagnosis/Procedures: Acute on chronic anemia requiring transfusions.
Condition: Good
Diet: Regular
Activity Restrictions/Additional Instructions:
Wound Care Instructions
R plantar foot: Resume collagen dressing that was ordered by [employer]
R Achilles scabs, apply foam to protect when using Charcot brace.
Follow up with [employer] as scheduled.
Referrals:
Quintin Cavazos, [Family Provider, Internal Medicine]
Prescriptions:
Continued
multivitamin Tablet
1 tab PO DAILY
acetaminophen [Tylenol] 325 mg Tablet
650 mg PO Q6HPRN MDD 3000 mg PRN (Reason: mild pain/temp>100.4F)
atorvastatin 20 mg Tablet
20 mg PO QPM
carvedilol 12.5 mg Tablet
12.5 mg PO BID
Patient Comments:
04/09/2025, hold for SBP<110 and HR<60.
loperamide 2 mg Capsule
2 mg PO Q6HPRN PRN (Reason: diarrhea)
amiodarone 200 mg Tablet
200 mg PO BID
sevelamer HCl 800 mg Tablet
1,600 mg PO MEALS
dextromethorphan-guaifenesin 10-100 mg/5 mL Syrup
5 ml PO Q4HPRN PRN (Reason: cough)
bisacodyl 10 mg Suppository
10 mg UT DAILY PRN (Reason: if sorbitol ineffective)
pantoprazole 40 mg Tablet,Delayed Release (Dr/Ec)
40 mg PO DAILY
ferrous sulfate 325 mg (65 mg iron) Tablet
325 mg PO BID
digoxin 125 mcg (0.125 mg) Tablet
125 mcg PO TUTHSA@1700
sorbitol 70 % Solution
30 ml PO DAILYPRN PRN (Reason: constipation)
febuxostat 40 mg Tablet
40 mg PO DAILY
PreserVision AREDS-2 250-90-40-1 mg Capsule
1 cap PO BID
Retacrit 10,000 unit/mL Solution
10,000 unit SC MOWEFR
Patient Comments:
04/09/2025, to be given at dialysis.
Lactobacillus
1 cap PO DAILY
Patient Comments:
04/09/2025, [facility] paperwork does not specify specific type of Lactobacillus.
calcium carbonate
1 tab PO BID
Patient Comments:
04/09/2025, [facility] paperwork does not specifiy dose of calcium.
potassium chloride
40 meq PO DAILY
Patient Comments:
04/09/2025, [facility] paperwork does not specify specific type of potassium chloride, just that pt. is taking 40 meq.
Discharge Orders:
Discharge Patient (As Directed); Ordered 04/15/25
Ordered By: Randy Perez
Discharge Date and Time
Print Language: SYRIAN
--- NOTE | 2025-04-15 12:13 | CM ---
Addendum entered by Keyon Kuhn 04/15/25 13:03:
CM received a phone call from [facility] major donor coordinator Wilma and she confirmed they do have a bed available and pt is accepted for admission today. per major donor coordinator, they will transport the pt to and from
outpatient HD treatment and she stated that [facility] center locates across the street from [facility]. CM faxed [facility] Welcome Letter to [facility] and they are aware to bring the pt to first outpatient HD treatment at [facility]
center on 04/17/25 309 minutes earlier scheduled time 11:40a.m.
[facility] major donor coordinator requested discharge time 6:00 p.m. or later.
[facility] to arrange ambulance transport [facility] completed and left with [facility].
[facility] nursing report: [phone]
Discharge instructions fax: [phone]
D/C plan: [facility] with outpatient HD treatment at [facility].
Original Note:
CM following rte: discharge planning.
Reviewed pt's chart, met with pt.
CM received a Welcome letter from [facility] that pt is accepted for outpatient HD treatment at [facility] center for T, Th and Sat, chair time 11:40 a.m. CM gives Welcome letter to the pt.
Discharge order noted. IMM reviewed, placed on chart, pt has a copy.
PT and OT have been recommending SNF level of care and pt has been refusing it and requested to return back home with Nakul DUTTON. CM introduced Welcome letter from [facility] to the pt and pt stated today he will not be able to get to HD center because he
needs help and pt requested to go to a SNF. Pt strongly declined [facility].
Pt requested following SNFs: [facility] SNF, [facility] SNF or [facility] SNF. A referral to above SNFs made. Awaiting for determination. Pt stated he will be able to pay for transportation to and from HD.
D/C plan: preferred SNF.
CM will follow to assist pt with discharge to a preferred and accepted SNF
[2025-04-15 15:21] VITALS: BP 158/61
[2025-04-15] MEDS: LANOXIN 125 MCG PO (16:50)
[2025-04-15] MEDS: LIPITOR 20 MG PO (17:02)
--- NOTE | 2025-04-15 18:31 | PTCARENOTE ---
Patient being discharged to [facility], transported [facility]. This RN removed patient's IV and called report to Cristiane at facility. Tele pack removed by tech. Patient dressed and belongings gathered in room with assistance of this RN and
tech. HD cath in place, next session outpatient on , patient and facility aware.
== END 2025-04-15 18:52 | DRG 811 ==
LOC: 2 NORTH 21:47
PROVIDERS: Clinical Nurse Specialist Family Health; Hospitalist; Internal Medicine; Internal Medicine Nephrology; ADMITTING PHYSICIAN Internal Medicine; ATTENDING PHYSICIAN Internal Medicine; CONSULT PHYSICIAN Specialist; EMERGENCY PHYSICIAN Emergency Medicine; FAMILY PHYSICIAN Internal Medicine; OTHER PHYSICIAN Internal Medicine; OTHER PHYSICIAN Internal Medicine Hematology & Oncology
PROC: 30233N1 Transfusion of Nonautologous Red Blood Cells into Peripheral Vein, Percutaneous Approach (ICD-10-PCS; 2025-04-09)
PROC: 5A1D70Z Performance of Urinary Filtration, Intermittent, Less than 6 Hours Per Day (ICD-10-PCS; 2025-04-11)
DX: D64.9 Anemia, unspecified (principal); N18.6 End stage renal disease; I12.0 Hypertensive chronic kidney disease with stage 5 chronic kidney disease or end stage renal disease; I48.92 Unspecified atrial flutter; C90.01 Multiple myeloma in remission; E87.1 Hypo-osmolality and hyponatremia; E11.22 Type 2 diabetes mellitus with diabetic chronic kidney disease; K21.9 Gastro-esophageal reflux disease without esophagitis; E11.40 Type 2 diabetes mellitus with diabetic neuropathy, unspecified; E11.610 Type 2 diabetes mellitus with diabetic neuropathic arthropathy; E66.09 Other obesity due to excess calories; E78.00 Pure hypercholesterolemia, unspecified; I48.91 Unspecified atrial fibrillation; E87.6 Hypokalemia; E61.1 Iron deficiency; Z60.2 Problems related to living alone; Z95.0 Presence of cardiac pacemaker; Z99.2 Dependence on renal dialysis; Z80.0 Family history of malignant neoplasm of digestive organs; Z80.3 Family history of malignant neoplasm of breast; Z82.49 Family history of ischemic heart disease and other diseases of the circulatory system; Z88.1 Allergy status to other antibiotic agents; Z79.01 Long term (current) use of anticoagulants; Z68.32 Body mass index [BMI] 32.0-32.9, adult
CPT/HCPCS: 71046; 80048; 80053; 82607; 82728; 82746; 82962; 83010; 83540; 83550; 83615; 83735; 85025; 85045; 86706; 86803; 86850; 86900; 86901; 86920; 87070; 87340; 96374; 97110; 97116; 97162; 97167; 97530; 97535; 99291; P9016; P9047; Q5106